=== PATIENT | female | born 1975 | race African-American/Black ===

== ENCOUNTER 2019-10-10 00:44 | Emergency (ER) | payer OTHER, SELFPAY ==
--- NOTE | ~2019-10-10 | CT_ITS ---
EXAMINATION: CT abdomen pelvis w con DATE: 10/10/2019 04:11 INDICATION: Epigastric abdominal pain TECHNIQUE: Computed tomography (CT) of the abdomen and pelvis was performed with 100 cc Omnipaque 350 intravenous contrast. Automated exposure control and iterative reconstruction technique were employe d. Exam dose: 642.54 mGy-cm total exam DLP. COMPARISON: 03/12/2019 CT abdomen pelvis FINDINGS: The lung bases are clear of infiltrate or consolidation. No pericardial or pleural effusion. The liver, spleen, pancreas, gallbladder, bile ducts, pancreatic duct and adrenal glands are unremark able. Probable small left adrenal adenoma. No renal mass lesion or urinary tract calculus or hydroure teronephrosis. Normal caliber of the abdominal aorta. No intraperitoneal or retroperitoneal or pelvic mass lesion or adenopathy or ascites. Bilateral sclerotic changes at the sacroiliac joints. No suspicious osteolytic or osteoblastic lesion s are noted. Normal appendix. There is extensive diverticulosis of left and right colon; no CT evidence of diverti culitis. No bowel obstruction, pneumatosis, bowel wall thickening or intraperitoneal free air. IMPRESSION: Extensive diverticulosis of left and right colon; no CT evidence of diverticulitis Normal appendix Bilateral sacroiliac osteosclerotic changes Reviewed, dictated and finalized at [facility]. Reviewed, dictated and finalized at [facility]. IMPRESSION: Extensive diverticulosis of left and right colon; no CT evidence o f diverticulitis Normal appendix Bilateral sacroiliac osteosclerotic changes
[2019-10-10 00:47] VITALS: BP 145/82; PULSE 90; RESP 18; TEMP 37.3; O2SAT 100
--- NOTE | 2019-10-10 00:55 | ED.ABDPAIN ---
HPI - Abdominal Pain General Chief Complaint: Abdominal Pain Stated Complaint: n/v History of Present Illness HPI narrative: Periumbilical pain radiating to her back. Burning in quality. Started after eating dinner and having one drink. She has a h/o diverticultis, this feels different. Related Data Allergies Allergy/AdvReac Type Severity Reaction Status Date / Time No Known Allergies Allergy Unverified 07/05/18 10:38 Review of Systems Review of Systems: All systems reviewed & are unremarkable except as noted in HPI and below Constitutional: Constitutional: Denies chills and Denies fever(s) Cardiovascular: Cardiovascular: Denies chest pain Respiratory: Respiratory: Denies dyspnea Gastrointestinal: Gastrointestinal: Reports abdominal pain and Reports nausea PMFSH Past Medical History Medical History (Updated 10/11/19 @ 02:53 by Jose Carlos Wright MD) Diverticulitis Social History Social History (Updated 10/11/19 @ 02:53 by Jose Carlos Wright MD) Smoking status: Light tobacco smoker Gender identity (if verbalized by the patient): Female Exam Const: General: healthy appearing, no acute distress and alert Orientation/consciousness: patient oriented x3 HENMT: Head: normal to inspection Resp: Effort & Inspection: normal respiratory effort Auscultation: clear to auscultation bilaterally Cardio: Rate: regular rate Rhythm: regular rhythm GI: Inspection: non-distended GI Palp: Yes Soft to palpation, Yes Tenderness to palpation present (GI) (periumbilcal and eigastric), No Guarding due to palpation present (GI) and No Rebound tenderness present Skin: General skin exam: normal color Neuro: General: patient oriented x3, moves all extremities, no focal motor deficits and CN's II-XI intact bilaterally Speech: normal speech Extrem: General: normal to inspection Course Vital Signs Vital signs: Vital Signs Temperature 37.3 C 10/10/19 00:47 Pulse Rate 90 10/10/19 00:47 Respiratory Rate 18 10/10/19 00:47 Blood Pressure 145/82 H 10/10/19 00:47 Pulse Oximetry 100 10/10/19 00:47 Temperature 37.3 C 10/10/19 00:47 Pulse Rate 68 10/10/19 06:22 Respiratory Rate 18 10/10/19 06:22 Blood Pressure 132/62 10/10/19 06:22 Pulse Oximetry 98 10/10/19 06:22 MDM - Abdominal Pain Differential Diagnosis Differential diagnosis: Likely acute appendicitis, diverticulitis, gastroenteritis and pancreatitis Medical Records Attestation: I reviewed the patient's medical records. Lab Data Attestation: I reviewed the patient's lab results. Result diagrams: 10/10/19 01:11 10/10/19 01:11 Labs: Lab Results 10/10/19 10/10/19 10/10/19 Range/Units 01:11 01:11 03:55 WBC 9.9 (4.5-10.0) K/mm3 RBC 4.26 (4.2-5.4) M/mm3 Hgb 13.4 (12.0-15.0) g/dL Hct 40.0 (37.0-47.0) % MCV 93.9 (80-100) fl MCH 31.5 (26-34) pg MCHC 33.5 (32-36) g/dl RDW 12.2 (11.5-14.5) % Plt Count 260 (150-375) k/mm3 MPV 9.5 (7.4-10.4) fl Immature Gran % (Auto) 0.2 (0-0.5) % Neut % (Auto) 74.6 H (45.5-73.1) % Lymph % (Auto) 16.9 L (18.3-44.2) % [place] % (Auto) 7.3 (2.6-8.5) % Eos % (Auto) 0.8 (0-4.4) % Baso % (Auto) 0.2 (0.2-1.2) % Lymph # (Auto) 1.67 (0.9-3.2) K/mm3 [place] # (Auto) 0.7 H (0.1-0.6) K/mm3 Eos # (Auto) 0.1 (0-0.3) K/mm3 Baso # (Auto) 0.0 (0.0-0.1) K/mm3 Abs Immat Gran (auto) 0.02 (0.00-0.031) K/mm3 Absolute Neuts (auto) 7.4 H (1.3-6.7) K/mm3 Absolute Nucleated RBC 0.0 (0.0-0.012) K/mm3 Nucleated RBC % 0.0 (0.0-0.2) % Sodium 137 (137-145) mmol/L Potassium 4.0 (3.4-5.0) mmol/L Chloride 107 (98-107) mmol/L Carbon Dioxide 24 (22-30) mmol/L BUN 15 (7-17) mg/dL Creatinine 1.00 (0.7-1.0) mg/dL Estim Creat Clear Calc Not Reportable Estimated GFR > 60 (59 - ) Glucose 110 H (65-105) mg/dL Calcium 9.5 (8.4-10.2) mg/dL Total
[2019-10-10] MEDS: SODIUM CHLORIDE 0.9% IV 1,000 ML 999 ML IV CONT (01:13)
[2019-10-10] MEDS: ONDANSETRON INJ 4 MG/2 ML VIAL IV PUSH (01:15)
[2019-10-10] MEDS: PANTOPRAZOLE SODIUM IV 40 MG VIAL IV PUSH (01:15)
[2019-10-10] MEDS: BELLADONNA ALK/PHENOB ELIX 10 ML, MAG HYDROX/ALUMINUM HYD/SIMETH 30 ML, LIDOCAINE HCL 2... PO (01:16)
[2019-10-10 01:19] LABS: Basophils Percent Auto 0.2 % (0.2-1.2); Eosinophils Absolute Auto 0.1 K/mm3 (0-0.3); Eosinophils Percent Auto 0.8 % (0-4.4); Hemoglobin 13.4 g/dL (12.0-15.0); Immature Granulocyte Absolute 0.02 K/mm3 (0.00-0.031); Immature Granulocyte Percent A 0.2 % (0-0.5); Lymphocytes Absolute Auto 1.67 K/mm3 (0.9-3.2); Lymphocytes Percent Auto 16.9 % (18.3-44.2); Mean Corpuscular HGB Conc 33.5 g/dl (32-36); Mean Corpuscular Hemoglobin 31.5 pg (26-34); Mean Corpuscular Volume 93.9 fl (80-100); Mean Platelet Volume 9.5 fl (7.4-10.4); Monocytes Absolute Auto 0.7 K/mm3 (0.1-0.6); Monocytes Percent Auto 7.3 % (2.6-8.5); Neutrophils Absolute Auto 7.4 K/mm3 (1.3-6.7); Neutrophils Percent Auto 74.6 % (45.5-73.1); Platelet Count Result 260 k/mm3 (150-375); Red Blood Count 4.26 M/mm3 (4.2-5.4); Red Cell Distribution Width 12.2 % (11.5-14.5); White Blood Count 9.9 K/mm3 (4.5-10.0)
[2019-10-10 02:09] LABS: Alanine Aminotransferase 16 U/L (4-35); Albumin Level 4.5 g/dL (3.5-5.1); Alkaline Phosphatase 69 U/L (38-126); Aspartate Amino Transferase 18 U/L (14-36); Bilirubin,Total 0.3 mg/dL (0.2-1.3); Blood Urea Nitrogen 15 mg/dL (7-17); Calcium 9.5 mg/dL (8.4-10.2); Carbon Dioxide 24 mmol/L (22-30); Chloride 107 mmol/L (98-107); Estimated Glomerular Filt Rate > 60; Glucose 110 mg/dL (65-105); Lipase 40 U/L (23-300); Sodium 137 mmol/L (137-145)
[2019-10-10] MEDS: DICYCLOMINE HCL INJ 20 MG/2 ML VIAL IM (02:30)
[2019-10-10 02:31] VITALS: BP 133/75; PULSE 67; RESP 18; O2SAT 99
[2019-10-10 03:49] VITALS: BP 131/86; PULSE 64; RESP 18; O2SAT 100
[2019-10-10 04:17] LABS: Add Urine Microscopic? YES; Appearance Urine Clear (Clear); Bilirubin Urine Negative (Negative); Blood Urine Negative (Negative); Color Urine Yellow (Yellow); Glucose Urine UA Negative (Negative); Ketones Urine Trace mg/dL (Negative); Leukocyte Esterase Ur Negative LEU/UL (Negative); Mucus Urine Rare /lpf; Nitrate Urine Negative (Negative); Protein Urine 1+ mg/dL (Negative); RBC Urine 0-2 /hpf (0-2); WBC Urine 0-3 /hpf
[2019-10-10 04:28] LABS: Specific Grav Ur 1.034 (1.001-1.035)
[2019-10-10 05:30] VITALS: BP 128/74; PULSE 64; RESP 18; O2SAT 100
[2019-10-10 06:22] VITALS: BP 132/62; PULSE 68; RESP 18; O2SAT 98
== END 2019-10-10 06:24 | disposition home or self-care (01) ==
PROVIDERS: Emergency Provider Emergency Medicine
DX: R10.33 Periumbilical pain (principal)
CPT/HCPCS: 36415; 74177; 80053; 81001; 81025; 83690; 85025; 96361; 96372; 96374; 96375; 99284; A9270; C9113; J0500; J2405; J7030; Q9967

== ENCOUNTER 2021-07-27 08:47 | Emergency (ER) | payer OTHER, SELFPAY ==
[2021-07-27 09:02] VITALS: BP 134/87; PULSE 66; RESP 18; TEMP 37.1; O2SAT 99
--- NOTE | 2021-07-27 09:12 | ED.ABDPAIN ---
HPI - Abdominal Pain General Chief Complaint: Abdominal Pain Stated Complaint: Stomach Cramping Time Seen by Provider: 07/27/21 09:10 Source: patient Mode of arrival: ambulatory Limitations: no limitations History of Present Illness HPI narrative: Lincoln Baugh is a 46 yo female with a PMH of diverticulitis, IBS who [facility] with increasing abdominal pain over the last week week to 10 days she states that she feels gassy but cannot get rid of this feeling of bloating and pain and today is a 10/10. Regular bowel movements, does not really feel real under externally, has Depo in arm Related Data Home Medications Medication Instructions Recorded Confirmed omeprazole 40 mg DIRECTED 07/27/21 07/27/21 Allergies Allergy/AdvReac Type Severity Reaction Status Date / Time No Known Allergies Allergy Unverified 07/05/18 10:38 Review of Systems Review of Systems: CONSTITUTIONAL: Denies fever, chills, sweats. EYES: Denies visual changes, redness, discharge. ENT: Denies rhinorrhea, congestion, sore throat, otalgia. CARDIOVASCULAR: Denies chest pain, palpitations, edema. RESPIRATORY: Denies dyspnea, wheezing, cough GASTROINTESTINAL:has abdominal pain- 10/10, no nausea, vomiting, diarrhea. GENITOURINARY: Denies dysuria, hematuria, abnormal discharge SKIN: Denies rash or itching. NEUROLOGIC: Denies numbness, or focal weakness. PSYCHIATRIC: Denies anxiety or depression. PMFSH Past Medical History Medical History Diverticulitis IBS (irritable bowel syndrome) Social History Social History Smoking status: Light tobacco smoker Gender identity (if verbalized by the patient): Female Comments At time of signature, I agree with nursing past medical, surgical, social and family history. There is no relevant family history pertinent to the presenting complaint. Exam Narrative: GENERAL: This is a well-nourished, well-developed patient, in moderate distress. HEAD: normocephalic, atraumatic. EYES: Sclera clear/white. Vision is grossly intact. EARS: External ears normal,. Hearing grossly intact. NOSE: External nose normal without nasal discharge, nares without redness, no rhinorrhea. THROAT: Mucous membranes moist, NECK: Neck supple, CARDIOVASCULAR: Regular rate and rhythm without murmurs, gallops, or rubs. RESPIRATORY: Clear to auscultation. Breath sounds equal bilaterally. No wheezes, rales, or rhonchi. GASTROINTESTINAL: Abdomen soft, not particularly tender doubled over in pain, rates 10 out of 10, has bowel sounds SKIN: warm, intact with no suspicious lesions or rash, good texture and turgor. NEURO: awake, alert, and oriented to person, place and time. There were no obvious focal neurologic abnormalities. Steady gait EXTREMITIES: Normal range of motion. BACK: Nontender without deformity Course Course Emergency Course: Patient comes with increasing abdominal pain for the last 10 days that she statesis / ; its constant and has not improved UA is negative test is negative Patient is being sent to [place] for further work-up Level of Care: Express Care Visit Vital Signs Vital signs: Vital Signs Temperature 98.7 F 07/27/21 09:02 Pulse Rate 66 07/27/21 09:02 Respiratory Rate 18 07/27/21 09:02 Blood Pressure 134/87 07/27/21 09:02 Pulse Oximetry 99 07/27/21 09:02 Temperature 98.7 F 07/27/21 09:02 Pulse Rate 66 07/27/21 09:02 Respiratory Rate 18 07/27/21 09:02 Blood Pressure 134/87 07/27/21 09:02 Pulse Oximetry 99 07/27/21 09:02 MDM - Abdominal Pain Differential Diagnosis Differential diagnosis: Likely abdominal pain, acute appendicitis, constipation, gastroenteritis, pancreatitis and other Lab Data Labs: UCG Bedside Result Negative Reference Range: Negative Urine Glucose
== END 2021-07-27 09:34 | disposition short-term general hospital (02) ==
PROVIDERS: Emergency Provider Nurse Practitioner
DX: R10.32 Left lower quadrant pain (principal); F17.200 Nicotine dependence, unspecified, uncomplicated
CPT/HCPCS: 81003; 81025; 99212; G0463

== ENCOUNTER 2021-07-27 09:58 | Emergency (ER) | payer OTHER, SELFPAY ==
--- NOTE | 2021-07-27 10:01 | PC.NURSE ---
Pt states she needs to leave to go get her phone. She states she will be back.
== END 2021-07-27 10:09 | disposition left against medical advice (07) ==
DX: Z53.21 Procedure and treatment not carried out due to patient leaving prior to being seen by health care provider (principal)
CPT/HCPCS: 99199

== ENCOUNTER 2021-07-27 10:27 | Emergency (ER) | payer OTHER, SELFPAY ==
[2021-07-27 10:37] VITALS: BP 143/98; PULSE 70; RESP 15; TEMP 36.4; O2SAT 95
[2021-07-27 10:52] LABS: Basophils Percent Auto 0.4 % (0.2-1.2); Eosinophils Absolute Auto 0.1 K/mm3 (0-0.3); Eosinophils Percent Auto 1.3 % (0-4.4); Hematocrit 39.6 % (37.0-47.0); Immature Granulocyte Absolute 0.03 K/mm3 (0.00-0.031); Immature Granulocyte Percent A 0.3 % (0-0.5); Lymphocytes Absolute Auto 2.24 K/mm3 (0.9-3.2); Lymphocytes Percent Auto 23.5 % (18.3-44.2); Mean Corpuscular HGB Conc 32.8 g/dl (32-36); Mean Corpuscular Hemoglobin 31.6 pg (26-34); Mean Corpuscular Volume 96.4 fl (80-100); Mean Platelet Volume 9.5 fl (7.4-10.4); Monocytes Absolute Auto 0.8 K/mm3 (0.1-0.6); Monocytes Percent Auto 8.5 % (2.6-8.5); Neutrophils Absolute Auto 6.3 K/mm3 (1.3-6.7); Platelet Count Result 263 k/mm3 (150-375); Red Blood Count 4.11 M/mm3 (4.2-5.4); Red Cell Distribution Width 12.3 % (11.5-14.5); White Blood Count 9.5 K/mm3 (4.5-10.0)
[2021-07-27 11:02] LABS: Alanine Aminotransferase 14 U/L (4-35); Albumin Level 4.3 g/dL (3.5-5.1); Alkaline Phosphatase 69 U/L (38-126); Anion Gap 5 mmol/L (8-16); Aspartate Amino Transferase 19 U/L (14-36); Bilirubin,Total 0.5 mg/dL (0.2-1.3); Blood Urea Nitrogen 13 mg/dL (7-17); Carbon Dioxide 23 mmol/L (22-30); Chloride 109 mmol/L (98-107); Estimated Glomerular Filt Rate > 60; Glucose 87 mg/dL (65-110); Lipase 35 U/L (23-300); Potassium 4.1 mmol/L (3.4-5.0); Sodium 137 mmol/L (137-145)
--- NOTE | 2021-07-27 11:52 | PC.NURSE ---
Pt presented to triage desk and states that she is feeling better and does not want to keep waiting to be seen. Pt reports she will followup with another doctor or else come back if it gets worse. Pt ambulatory upon leaving ED in NAD while talking on her cell phone.
== END 2021-07-27 12:03 | disposition left against medical advice (07) ==
LOC: ANHED 11:59
PROVIDERS: Emergency Medicine
DX: R10.32 Left lower quadrant pain (principal)
CPT/HCPCS: 36415; 80053; 83690; 85025; 99199

== ENCOUNTER 2021-10-27 07:14 | Emergency (ER) | payer OTHER, SELFPAY ==
[2021-10-27 07:20] VITALS: BP 135/94; PULSE 80; RESP 16; TEMP 36.1; O2SAT 99
--- NOTE | 2021-10-27 07:30 | ED.FEMALEGU ---
HPI - Female Genitourinary General Chief complaint: Urogenital-Female Stated complaint: uti Time Seen by Provider: 10/27/21 07:24 History of Present Illness HPI Narrative: 46-year-old female who has for the last week been having some itchiness and yellowish discharge, she states that she had unprotected intercourse 2 weeks ago, denies any burning or pain with urination, no abdominal or flank pain. States this feels like how it usually feels before she has a full-fledged UTI. No fevers or chills. Related Data Home Medications Medication Instructions Recorded Confirmed omeprazole 40 mg capsule,delayed 40 mg DIRECTED 07/27/21 07/27/21 release valacyclovir 1 gram tablet tablet 10/27/21 Allergies Allergy/AdvReac Type Severity Reaction Status Date / Time Penicillins AdvReac Other Verified 10/27/21 07:28 Review of Systems Review of Systems: CONST: No fever. HEENT: No sore throat C/V: No chest pain RESP: No cough GI: No abdominal pain : Vaginal discharge M/S: No joint pain. SKIN: No rash. NEURO: [No headache or focal numbness or weakness] PSYCH: [No depression] [facility] Past Medical History Medical History Diverticulitis IBS (irritable bowel syndrome) Social History Social History Smoking status: Light tobacco smoker Gender identity (if verbalized by the patient): Female Exam Narrative: EXAMINATION OF ORGAN SYSTEMS/BODY AREAS: Constitutional: Vital signs per nursing GENERAL:[No acute distress, non-toxic appearing.] HEAD: Normal with no signs of head trauma. EYES: EOMI, conjunctiva normal ENT: Hearing grossly intact LUNGS: Nonlabored breathing. HEART: [Regular rate and rhythm] ABD: [Soft], [nontender to palpation] : Scant discharge, no cervical motion tenderness or adnexal tenderness EXT: Normal range of motion SKIN: [No rashes or lesions.] NEURO: [Alert and oriented x 3. No gross focal sensory or strength deficits.] Course Vital Signs Vital signs: Vital Signs Temperature 97 F L 10/27/21 07:20 Pulse Rate 80 10/27/21 07:20 Respiratory Rate 16 10/27/21 07:20 Blood Pressure 135/94 H 10/27/21 07:20 Pulse Oximetry 99 10/27/21 07:20 Oxygen Delivery Room Air 10/27/21 07:20 Temperature 97 F L 10/27/21 07:20 Pulse Rate 80 10/27/21 07:20 Respiratory Rate 16 10/27/21 07:20 Blood Pressure 135/94 H 10/27/21 07:20 Pulse Oximetry 99 10/27/21 07:20 Oxygen Delivery Room Air 10/27/21 07:20 MDM - Female Genitourinary MDM Narrative Medical decision making narrative: 46-year-old female presenting with vaginal discharge and itching for the last week, had unprotected course 2 weeks ago, vital signs stable, exam shows soft nontender abdomen, no cervical motion tenderness or adnexal tenderness but slight discomfort with pelvic exam, differential includes STD, BV or yeast, UTI, . Doubt PID or TOA without CMT or adnexal tenderness. Labs show some WBCs but contaminated with squamous cells, had shared decision-making with the patient we felt she would benefit from empiric treatment at this time for STDs, she is given prescriptions for this and urged to follow-up with her doctor, return precautions provided and she should follow-up on her results. Abstinence for the next week advised. Lab Data Labs: Lab Results 10/27/21 10/27/21 10/27/21 Range/Units 07:27 07:50 07:50 Urine Color Yellow (Yellow) Urine Appearance Slightly cloudy (Clear) Urine pH 7.0 (5.0-9.0) Ur Specific [place] 1.020 (1.001-1.035) Urine Protein Negative (Negative) mg/dL Urine Glucose (UA) Negative (Negative) mg/dL Urine Ketones Negative (Negative) mg/dL Ur Blood (Man) 2+ H (Negative) Urine Nitrate Negative (Negative) Urine Bilirubin Negative (Negative) Urine Urobilinogen 1.0 (<2.0) mg/dL Leukocyte Esterase Rfl Trace H
[2021-10-27 07:33] LABS: Appearance Urine Slightly Cloudy (Clear); Bilirubin Urine Negative (Negative); Blood Urine 2+ (Negative); Color Urine Yellow (Yellow); Glucose Urine UA Negative (Negative); Ketones Urine Negative (Negative); Leukocyte Esterase Ur Trace LEU/UL (Negative); Nitrate Urine Negative (Negative); Protein Urine Negative (Negative)
[2021-10-27 07:43] LABS: Bacteria Urine Trace /hpf; Mucus Urine Rare /lpf; Squamous Epithelial Cell Urine Moderate /hpf (Few)
[2021-10-27 07:45] LABS: Add Urine Microscopic? YES
[2021-10-27] MEDS: DOXYCYCLINE HYCLATE 100 MG TABLET PO (07:56)
[2021-10-27] MEDS: metroNIDAZOLE 250 MG TABLET 500 MG PO (07:56)
[2021-10-27] MEDS: ONDANSETRON HCL ODT 4 MG TABLET PO (07:56)
[2021-10-27] MEDS: cefTRIAXone 1 GM VIAL 0.5 GM IM (07:59)
== END 2021-10-27 08:45 | disposition home or self-care (01) ==
PROVIDERS: Emergency Provider Emergency Medicine
DX: N76.0 Acute vaginitis (principal); K58.9 Irritable bowel syndrome, unspecified; F17.200 Nicotine dependence, unspecified, uncomplicated
CPT/HCPCS: 81001; 81025; 87070; 87491; 87591; 87808; 96372; 99284; A9270; J0696

== ENCOUNTER 2021-11-29 18:59 | Emergency (ER) | payer OTHER, SELFPAY ==
--- NOTE | ~2021-11-29 | CT_ITS ---
EXAMINATION: CT abdomen pelvis w con DATE: 11/29/2021 20:29 INDICATION: Left lower quadrant pain TECHNIQUE: Computed tomography (CT) of the abdomen and pelvis was performed with 100 cc Omnipaque 300 intravenous contrast. The dose-length product was 515.81 mGy-cm. Automated exposure control and iterative reconstruction technique were employed. COMPARISON: CT dated 10/10/2019. FINDINGS: Lung bases are unremarkable. No significant pleural or pericardial effusion. Heart size upp er normal. Normal appendix. Colonic diverticulosis with mild pericolonic fatty infiltration of the pr oximal sigmoid colon, compatible with mild uncomplicated diverticulitis. No free air or free fluid. The liver, spleen, pancreas, right adrenal gland and kidneys are unremarkable. There is a low-density 2 cm left adrenal nodule, most likely benign adenoma without significant change. There is bilateral asymmetric sclerosis of the sacroiliac joints may represent sacroiliitis. No acute osseous abnormalit y. IMPRESSION: 1. Mild acute uncomplicated diverticulitis proximal sigmoid colon. Reviewed, dictated and finalized at [facility].
[2021-11-29 19:00] VITALS: BP 168/81; PULSE 56; RESP 16; TEMP 36.8; O2SAT 100
--- NOTE | 2021-11-29 19:21 | PC.NURSE ---
pt. to txmt rm 4 ; breathing and skin signs wnl, NAD. Unhappy about sheet on bed; sheet changed.
[2021-11-29 19:34] LABS: Basophils Percent Auto 0.2 % (0.2-1.2); Eosinophils Absolute Auto 0.1 K/mm3 (0-0.3); Eosinophils Percent Auto 0.9 % (0-4.4); Hematocrit 37.9 % (37.0-47.0); Hemoglobin 12.5 g/dL (12.0-15.0); Immature Granulocyte Absolute 0.03 K/mm3 (0.00-0.031); Immature Granulocyte Percent A 0.3 % (0-0.5); Lymphocytes Absolute Auto 3.03 K/mm3 (0.9-3.2); Lymphocytes Percent Auto 29.2 % (18.3-44.2); Mean Corpuscular Hemoglobin 30.9 pg (26-34); Mean Corpuscular Volume 93.8 fl (80-100); Mean Platelet Volume 9.2 fl (7.4-10.4); Monocytes Absolute Auto 0.7 K/mm3 (0.1-0.6); Monocytes Percent Auto 6.8 % (2.6-8.5); Neutrophils Absolute Auto 6.5 K/mm3 (1.3-6.7); Neutrophils Percent Auto 62.6 % (45.5-73.1); Platelet Count Result 222 k/mm3 (150-375); Red Blood Count 4.04 M/mm3 (4.2-5.4); Red Cell Distribution Width 12.2 % (11.5-14.5); White Blood Count 10.4 K/mm3 (4.5-10.0)
[2021-11-29 19:45] LABS: Alanine Aminotransferase 20 U/L (6-35); Albumin Level 4.1 g/dL (3.5-5.1); Alkaline Phosphatase 62 U/L (38-126); Anion Gap 7 mmol/L (8-16); Aspartate Amino Transferase 22 U/L (14-36); Bilirubin,Total 0.3 mg/dL (0.2-1.3); Blood Urea Nitrogen 15 mg/dL (7-17); Calcium 8.5 mg/dL (8.4-10.2); Carbon Dioxide 21 mmol/L (22-30); Chloride 111 mmol/L (98-107); Estimated CRCL calculation 53 ml/min; Estimated Glomerular Filt Rate > 60; Glucose 138 mg/dL (65-110); Lipase 52 U/L (23-300); Potassium 4.1 mmol/L (3.4-5.0); Sodium 139 mmol/L (137-145)
[2021-11-29] MEDS: MORPHINE SULFATE (*CRX) 4 MG/ML INJ IV PUSH (19:50)
[2021-11-29 20:24] LABS: Appearance Urine Clear (Clear); Bilirubin Urine Negative (Negative); Color Urine Yellow (Yellow); Glucose Urine UA Negative (Negative); Ketones Urine Negative (Negative); Leukocyte Esterase Ur Negative LEU/UL (Negative); Nitrate Urine Negative (Negative); Protein Urine Negative (Negative); Specific Grav Ur 1.025 (1.001-1.035); Urobilinogen Urine 0.2 mg/dL (<2.0); pH Urine 5.5 (5.0-9.0)
[2021-11-29 20:27] LABS: Mucus Urine Rare /lpf; Squamous Epithelial Cell Urine Occasional /hpf (Few); WBC Urine 0-3 /hpf
[2021-11-29 20:28] LABS: Add Urine Microscopic? YES; Blood Urine Trace-Intact (Negative)
--- NOTE | 2021-11-29 20:28 | ED.GENADULT ---
HPI - General Adult General Chief complaint: Abdominal Pain Stated complaint: ABD pain x3 days Time Seen by Provider: 11/29/21 19:19 History of Present Illness HPI narrative: Patient is a 46-year-old female who presents ER with abdominal pain. Ongoing for 3 days. Located in left lower quadrant. No radiation. Has history of diverticulitis and this feels similar. No diarrhea. No fevers or chills or sweats. No blood in stool. Last diverticulitis was several years ago when she was hospitalized. Related Data Home Medications Medication Instructions Recorded Confirmed omeprazole 40 mg capsule,delayed 40 mg DIRECTED 07/27/21 07/27/21 release valacyclovir 1 gram tablet tablet 10/27/21 Allergies Allergy/AdvReac Type Severity Reaction Status Date / Time Penicillins AdvReac Other Verified 10/27/21 07:28 Review of Systems Review of Systems: All systems reviewed & are unremarkable except as noted in HPI and below Constitutional: Constitutional: Denies chills and Denies fever(s) ENT: Denies nasal congestion and Denies sore throat Cardiovascular: Cardiovascular: Denies chest pain, Denies rapid heart rate and Denies radiating jaw, neck or arm pain Respiratory: Respiratory: Denies cough and Denies dyspnea Gastrointestinal: Gastrointestinal: Reports abdominal pain, Reports bloating, Denies diarrhea, Denies nausea and Denies vomiting Genitourinary: Genitourinary: Denies nocturia and Denies dysuria PMFSH Past Medical History Medical History (Updated 11/29/21 @ 20:49 by Shola Pennington MD) Diverticulitis IBS (irritable bowel syndrome) Surgical History Surgical History (Updated 11/29/21 @ 20:46 by Shola Pennington MD) No pertinent past surgical history Social History Social History Smoking status: Light tobacco smoker Gender identity (if verbalized by the patient): Female Exam Narrative: GENERAL: Well-appearing, well-nourished, and in no acute distress. HEAD: Normocephalic, atraumatic. EYES: EOMI. CHEST: Clear to auscultation. No respiratory distress. HEART: Regular rate and rhythm. Normal peripheral pulses. ABDOMEN: Soft, mild tenderness in left lower quadrant with mild guarding, nondistended, normal active bowel sounds. EXTREMITIES: Normal range of motion. No edema. SKIN: Warm, dry, no rash. NEURO: Alert and oriented x3. PSYCH: Normal mood and affect. Course Course Emergency Course: Patient informed of results. Discharge home. Vital Signs Vital signs: Vital Signs Temperature 98.2 F 11/29/21 19:00 Pulse Rate 56 L 11/29/21 19:00 Respiratory Rate 16 11/29/21 19:00 Blood Pressure 168/81 H 11/29/21 19:00 Pulse Oximetry 100 11/29/21 19:00 Oxygen Delivery Room Air 11/29/21 19:00 Temperature 98.2 F 11/29/21 19:00 Pulse Rate 56 L 11/29/21 19:00 Respiratory Rate 16 11/29/21 19:00 Blood Pressure 168/81 H 11/29/21 19:00 Pulse Oximetry 100 11/29/21 19:00 Oxygen Delivery Room Air 11/29/21 19:00 Medical Decision Making Vital Signs Vital Signs: Vital Signs Temperature 98.2 F 11/29/21 19:00 Pulse Rate 56 L 11/29/21 19:00 Respiratory Rate 16 11/29/21 19:00 Blood Pressure 168/81 H 11/29/21 19:00 Pulse Oximetry 100 11/29/21 19:00 Oxygen Delivery Room Air 11/29/21 19:00 Temperature 98.2 F 11/29/21 19:00 Pulse Rate 56 L 11/29/21 19:00 Respiratory Rate 16 11/29/21 19:00 Blood Pressure 168/81 H 11/29/21 19:00 Pulse Oximetry 100 11/29/21 19:00 Oxygen Delivery Room Air 11/29/21 19:00 Lab Data Result diagrams: 11/29/21 19:26 11/29/21 19:26 Labs: Lab Results 11/29/21 11/29/21 11/29/21 Range/Units 19:26 19:26 20:14 WBC 10.4 H (4.5-10.0) K/mm3 RBC 4.04 L (4.2-5.4) M/mm3 Hgb 12.5 (12.0-15.0) g/dL Hct 37.9 (37.0-47.0) % MCV 93.8 (80-100) fl MCH 30.9 (26-34) pg MCHC 33.0 (32-36) g/dl
[2021-11-29 20:49] VITALS: BP 153/84; PULSE 67; RESP 20; O2SAT 100
[2021-11-29] MEDS: CIPROFLOXACIN 500 MG TAB PO (21:55)
[2021-11-29] MEDS: metroNIDAZOLE 250 MG TABLET 500 MG PO (21:56)
== END 2021-11-29 22:00 | disposition home or self-care (01) ==
PROVIDERS: Nurse Practitioner Family; Emergency Provider Emergency Medicine
DX: K57.32 Diverticulitis of large intestine without perforation or abscess without bleeding (principal); K58.9 Irritable bowel syndrome, unspecified; F17.200 Nicotine dependence, unspecified, uncomplicated
CPT/HCPCS: 36415; 74177; 80053; 81001; 81025; 83690; 85025; 96374; 99284; A9270; J2270; Q9967

== ENCOUNTER 2021-12-28 15:00 | Emergency (ER) | payer OTHER, SELFPAY ==
--- NOTE | ~2021-12-28 | XR_ITS ---
XR foot LT min 3V DATE: 12/28/2021 15:26 INDICATION: Dropped item onto foot. Left second toe and metatarsal pain TECHNIQUE: 4 views COMPARISON: None FINDINGS: There is soft tissue swelling of the second toe. No apparent fracture or dislocation. There is hallux valgus and bunion deformity. Mild posterior calcaneal enthesopathy. IMPRESSION: Soft tissue swelling of second toe; no apparent fracture or dislocation Hallux valgus and bunion deformity Mild posterior calcaneal enthesopathy. Reviewed, dictated and finalized at [facility]. IMPRESSION: Soft tissue swelling of second toe; no apparent fracture or disloca tion Hallux valgus and bunion deformity Mild posterior calcaneal enthesopathy.
[2021-12-28 15:07] VITALS: BP 138/89; PULSE 81; RESP 16; TEMP 36.6; O2SAT 100
--- NOTE | 2021-12-28 15:22 | ED.LOWEXIN ---
HPI - Extremity Injury (Lower) General Chief Complaint: Extremity Injury, Lower Stated Complaint: Toe Pain Time Seen by Provider: 12/28/21 15:36 Source: patient and RN notes reviewed Mode of arrival: ambulatory Limitations: no limitations History of Present Illness HPI Narrative: 46-year-old female presents with multiple complaints. She reports today she dropped a can good on her left second toe. She reports it hurts to move, it is swollen. In a separate complaint she reports chronic left shoulder pain. She denies injury to the left shoulder. She reports it aches throughout the day and massage makes it feel better. Reports she occasionally takes ibuprofen for it which helps. Reports its painful to sleep on. She denies chest pain or shortness of breath. She does not currently have a primary care doctor MD complaint: foot injury Related Data Home Medications Medication Instructions Recorded Confirmed omeprazole 40 mg capsule,delayed 40 mg DIRECTED 07/27/21 07/27/21 release valacyclovir 1 gram tablet tablet 10/27/21 Allergies Allergy/AdvReac Type Severity Reaction Status Date / Time Penicillins AdvReac Other Verified 12/28/21 15:05 Review of Systems Review of Systems: CONSTITUTIONAL: Denies malaise, chills, sweats, or fever. SKIN: Denies rash or itching, open skin, laceration, abrasion, redness, warmth MUSCULOSKELETAL: Reports left shoulder pain, left second toe pain, swelling NEUROLOGIC: Denies numbness, weakness All systems reviewed & are unremarkable except as noted in HPI and below PMFSH Past Medical History Medical History (Updated 12/28/21 @ 15:49 by Samara Romano NP) Diverticulitis IBS (irritable bowel syndrome) Surgical History Surgical History (Updated 11/29/21 @ 20:46 by Shola Pennington MD) No pertinent past surgical history Social History Social History Smoking status: Light tobacco smoker Gender identity (if verbalized by the patient): Female Comments At time of signature, agree with nursing past medical, surgical, social and family history. There is no relevant family history pertinent to the presenting complaint Exam Narrative: GENERAL: Well-appearing, well-nourished, and in no acute distress. HEAD: Normocephalic, atraumatic. EYES: PERRLA, conjunctivae clear NECK: Supple. CHEST: Speaks in full sentences. No respiratory distress. HEART: Regular rate and rhythm. Normal and equal peripheral pulses. EXTREMITIES: Second digit of left foot has normal strength and sensation, limited range of motion. Moderate edema, no ecchymosis. Normal sensation with sensitivity to light touch and pain. Mid digit tenderness. No open wounds, no skin tenting, no devitalized tissue or atrophy, no trophic changes, no obvious deformity, alignment normal, nearby joints and structures intact. Distal pulses palpable and equal bilaterally, skin warm, dry, pink. Capillary refill less than 3 seconds. No tenderness to palpation of the shoulder, clavicle, grossly normal range of motion, normal sensation and strength SKIN: Warm, dry, no rash. NEURO: Alert and oriented x3. PSYCH: Normal mood and affect Course Course Emergency Course: Patient is aware of diagnosis, understands and agrees to treatment plan. Anticipatory guidance given. Patient agrees to follow-up as directed and is aware of reasons to seek care at the emergency department. Portions of this record may have been created with voice recognition software Level of Care: Express Care Visit Vital Signs Vital signs: Vital Signs Temperature 97.8 F 12/28/21 15:07 Pulse Rate 81 12/28/21 15:07 Respiratory Rate 16 12/28/21 15:07 Blood Pressure 138/89 12/28/21 15:07 Pulse Oximetry 100 12/28/21 15:07 Temperature 97.8 F 12/28/21 15:07 Pulse Rate 81 12/28/21 15:07 Respiratory Rate 16 12/28/21 15:07 Blood Pressure 138/89 12/28/21 15:07 Pulse Oximetry 100 12/28/21
== END 2021-12-28 15:51 | disposition home or self-care (01) ==
PROVIDERS: Emergency Provider Nurse Practitioner
DX: S90.122A Contusion of left lesser toe(s) without damage to nail, initial encounter (principal); W20.8XXA Other cause of strike by thrown, projected or falling object, initial encounter; F17.200 Nicotine dependence, unspecified, uncomplicated; G89.29 Other chronic pain; M25.512 Pain in left shoulder
CPT/HCPCS: 73630; 99213; G0463

== ENCOUNTER 2022-01-12 15:11 | Emergency (ER) | payer OTHER, SELFPAY ==
--- NOTE | ~2022-01-12 | CT_ITS ---
EXAMINATION: CT abdomen pelvis w con DATE: 01/12/2022 18:03 INDICATION: abd pain TECHNIQUE: Computed tomography (CT) of the abdomen and pelvis was performed with 100 mL Omnipaque-350 intravenous contrast. Automated exposure control and iterative reconstruction technique were employe d. The dose-length product was 439.21 mGy-cm. COMPARISON: 11/29/2021. FINDINGS: Lower thorax: Clear lungs. Small fat-containing right posterior diaphragmatic hernia. Liver: Normal. Biliary/Gallbladder: No bile duct dilation. Pancreas: No mass or duct dilation. Spleen: Normal. Adrenals:Left adrenal adenoma. Kidneys: No mass, stone, or hydronephrosis. GI tract: Mild gastric wall edema. Single loop of mildly dilated small bowel in the left upper quadra nt without significant wall thickening or surrounding inflammatory change. Normal appendix. Extensive diverticular disease. Short segment wall thickening and surrounding inflammatory change proximal sig moid. Mesentery/Peritoneum: No ascites, mass, or free air. Retroperitoneum: No mass. Pelvis: Pelvic organs are within normal limits. Soft Tissues: Soft tissues and body wall unremarkable. Bones: No acute osseous finding. IMPRESSION: Acute uncomplicated diverticulitis involving the proximal sigmoid colon. Loop of dilated small bowel in the left upper quadrant may reflect chronic dilation, mild enteritis, or early IBD flare context. Reviewed, dictated and finalized at location K. IMPRESSION: Acute uncomplicated diverticulitis involving the proximal sigmoid colon. Loop o f dilated small bowel in the left upper quadrant may reflect chronic dilation, mild enteritis, or early IBD flare context.
[2022-01-12 15:14] VITALS: BP 140/83; PULSE 71; RESP 16; TEMP 37.1; O2SAT 99
[2022-01-12 16:02] LABS: Basophils Percent Auto 0.2 % (0.2-1.2); Eosinophils Absolute Auto 0.1 K/mm3 (0-0.3); Eosinophils Percent Auto 1.3 % (0-4.4); Hematocrit 37.9 % (37.0-47.0); Hemoglobin 12.3 g/dL (12.0-15.0); Immature Granulocyte Absolute 0.03 K/mm3 (0.00-0.031); Immature Granulocyte Percent A 0.3 % (0-0.5); Lymphocytes Absolute Auto 1.98 K/mm3 (0.9-3.2); Lymphocytes Percent Auto 19.6 % (18.3-44.2); Mean Corpuscular HGB Conc 32.5 g/dl (32-36); Mean Corpuscular Hemoglobin 31.1 pg (26-34); Mean Corpuscular Volume 95.9 fl (80-100); Mean Platelet Volume 8.9 fl (7.4-10.4); Monocytes Absolute Auto 0.9 K/mm3 (0.1-0.6); Monocytes Percent Auto 8.6 % (2.6-8.5); Neutrophils Absolute Auto 7.1 K/mm3 (1.3-6.7); Platelet Count Result 271 k/mm3 (150-375); Red Blood Count 3.95 M/mm3 (4.2-5.4); Red Cell Distribution Width 12.6 % (11.5-14.5); White Blood Count 10.1 K/mm3 (4.5-10.0)
[2022-01-12 16:18] LABS: Alanine Aminotransferase 17 U/L (6-35); Albumin Level 3.9 g/dL (3.5-5.1); Alkaline Phosphatase 65 U/L (38-126); Anion Gap 6 mmol/L (8-16); Aspartate Amino Transferase 18 U/L (14-36); Bilirubin,Total 0.3 mg/dL (0.2-1.3); Blood Urea Nitrogen 10 mg/dL (7-17); Calcium 9.1 mg/dL (8.4-10.2); Carbon Dioxide 23 mmol/L (22-30); Chloride 109 mmol/L (98-107); Estimated CRCL calculation 71 ml/min; Estimated Glomerular Filt Rate > 60; Glucose 128 mg/dL (65-110); Lipase 41 U/L (23-300); Potassium 3.7 mmol/L (3.4-5.0); Sodium 138 mmol/L (137-145)
[2022-01-12 16:42] LABS: Appearance Urine Clear (Clear); Bilirubin Urine 1+ (Negative); Blood Urine Negative (Negative); Color Urine Yellow (Yellow); Glucose Urine UA Negative (Negative); Ketones Urine Negative (Negative); Leukocyte Esterase Ur Negative LEU/UL (Negative); Nitrate Urine Negative (Negative); Protein Urine Trace mg/dL (Negative); Specific Grav Ur >= 1.030 (1.001-1.035)
[2022-01-12 16:47] LABS: Add Urine Microscopic? YES; Bacteria Urine Trace /hpf; Mucus Urine Rare /lpf; RBC Urine 0-2 /hpf (0-2); Squamous Epithelial Cell Urine Few /hpf (Few); WBC Urine 0-3 /hpf
[2022-01-12] MEDS: MORPHINE SULFATE (*CRX) 4 MG/ML INJ IV PUSH (17:26)
[2022-01-12] MEDS: ONDANSETRON INJ 4 MG/2 ML VIAL IV PUSH (17:26)
--- NOTE | 2022-01-12 17:36 | ED.ABDPAIN ---
HPI - Abdominal Pain General Chief Complaint: Abdominal Pain <FAWN Jansen Last Filed: 01/12/22 18:25> Stated Complaint: abd pain <FAWN Jansen Last Filed: 01/12/22 18:25> Time Seen by Provider: 01/12/22 17:09 <FAWN Jansen Last Filed: 01/12/22 18:25> Source: patient <FAWN Jansen Last Filed: 01/12/22 18:25> Mode of arrival: ambulatory <FAWN Jansen Last Filed: 01/12/22 18:25> Limitations: no limitations <FAWN Jansen Last Filed: 01/12/22 18:25> History of Present Illness HPI narrative: This is a 46 year old female that presents to the ER for lower abdominal pain intermittently over the last couple weeks. Reports worsening today. Denies fever, vomiting, diarrhea, or blood in the stool. <FAWN Jansen Last Filed: 01/12/22 18:25> Related Data Home Medications: Home Medications Medication Instructions Recorded Confirmed omeprazole 40 mg capsule,delayed 40 mg DIRECTED 07/27/21 07/27/21 release valacyclovir 1 gram tablet tablet 10/27/21 <FAWN Jansen Last Filed: 01/12/22 18:25> Allergies/Adverse Reactions: Allergies Allergy/AdvReac Type Severity Reaction Status Date / Time Penicillins AdvReac Other Verified 01/12/22 16:56 <FAWN Jansen Last Filed: 01/12/22 18:25> Review of Systems Review of Systems: CONSTITUTIONAL: Denies fever GASTROINTESTINAL: Reports abdominal pain. Denies nausea, vomiting, or diarrhea. GENITOURINARY: Denies dysuria or hematuria. <FAWN Jansen Last Filed: 01/12/22 18:25> All systems reviewed & are unremarkable except as noted in HPI and below <FAWN Jansen Last Filed: 01/12/22 18:25> [facility] Past Medical History Medical History: Medical History (Updated 01/12/22 @ 18:19 by Maegan Hayden PA-C) Diverticulitis IBS (irritable bowel syndrome) <Maegan Hayden PA-C - Last Filed: 01/12/22 18:25> Surgical History Surgical History: Surgical History (Updated 11/29/21 @ 20:46 by Shola Pennington MD) No pertinent past surgical history <Maegan Hayden PA-C - Last Filed: 01/12/22 18:25> Social History Social History: Social History (Updated 01/12/22 @ 17:41 by Maegan Hayden PA-C) Smoking status: Light tobacco smoker Substance use: current Substance use type: marijuana Gender identity (if verbalized by the patient): Female <Maegan Hayden PA-C - Last Filed: 01/12/22 18:25> Exam Narrative: GENERAL: Well-appearing, well-nourished, and in no acute distress. HEAD: Normocephalic, atraumatic. EYES: EOMI. CHEST: Clear to auscultation. No respiratory distress. No wheezes rales or rhonchi HEART: Regular rate and rhythm. No murmur heard. Normal peripheral pulses. ABDOMEN: Soft, nontender, nondistended, normal active bowel sounds. EXTREMITIES: Normal range of motion. No edema. SKIN: Warm, dry, no rash. NEURO: No focal deficits. Alert and oriented x3. PSYCH: Normal mood and affect <Maegan Hayden PA-C - Last Filed: 01/12/22 18:25> Course RETAIL OPERATIONS SPECIALIST/PA Physician Supervision For this patient encounter, I reviewed the RETAIL OPERATIONS SPECIALIST or PA documentation, treatment plan, and medical decision making <Juice Hay MD - Last Filed: 01/12/22 20:22> Vital Signs Vital signs: Vital Signs Temperature 98.8 F 01/12/22 15:14 Pulse Rate 71 01/12/22 15:14 Respiratory Rate 16 01/12/22 15:14 Blood Pressure 140/83 01/12/22 15:14 Pulse Oximetry 99 01/12/22 15:14 Oxygen Delivery Room Air 01/12/22 15:14 Temperature 98.8 F 01/12/22 15:14 Pulse Rate 86 01/12/22 19:16 Respiratory Rate 16 01/12/22 19:16 Blood Pressure 144/92 H 01/12/22 19:16 Pulse Oximetry 98 01/12/22 19:16 Oxygen Delivery Room Air 01/12/22 15:14 <Maegan Hayden PA-C - Last Filed: 01/12/22 18:25> Vital Signs Temperature 98.8 F 01/12/22 15:14 Pulse Rate 71 01/12/22
[2022-01-12 19:16] VITALS: BP 144/92; PULSE 86; RESP 16; O2SAT 98
== END 2022-01-12 19:22 | disposition home or self-care (01) ==
PROVIDERS: Emergency Provider Emergency Medicine; PCP Physician Assistant
DX: K57.32 Diverticulitis of large intestine without perforation or abscess without bleeding (principal); K58.9 Irritable bowel syndrome, unspecified; F17.200 Nicotine dependence, unspecified, uncomplicated
CPT/HCPCS: 36415; 74177; 80053; 81001; 81025; 83690; 85025; 96365; 96366; 96375; 99284; J0131; J2270; J2405; Q9967

== ENCOUNTER 2022-01-26 21:05 | Inpatient (IN) | payer OTHER, SELFPAY ==
--- NOTE | ~2022-01-26 | CT_ITS ---
EXAMINATION: CT abdomen pelvis w con DATE: 01/26/2022 22:43 INDICATION: LLQ pain/flank pain, constipation, hx diverticulit TECHNIQUE: Computed tomography (CT) of the abdomen and pelvis was performed with 100 mL Omnipaque-350 intravenous contrast. Automated exposure control and iterative reconstruction technique were employe d. The dose-length product was 529.20 mGy-cm. COMPARISON: 01/12/2022. FINDINGS: Lower thorax: Small uncomplicated fat-containing right posterior diaphragmatic hernia. Liver: Normal. Biliary/Gallbladder: Gallbladder is normal. No bile duct dilation. Pancreas: No mass or duct dilation. Spleen: Normal. Adrenals:Left adrenal adenoma. Kidneys: No mass, stone, or hydronephrosis. GI tract: Distal esophageal and gastric wall edema as can be seen with esophagitis/gastritis. No smal l or large bowel dilation. Normal appendix. Short segment pericolonic inflammatory change in the dist al descending colon. Extensive diverticulosis. Mesentery/Peritoneum: No ascites, mass, or free air. Retroperitoneum: No mass. Pelvis: Pelvic organs are within normal limits. Soft Tissues: Soft tissues and body wall unremarkable. Bones: No acute osseous finding. IMPRESSION: Acute uncomplicated distal descending colon diverticulitis. Reviewed, dictated and finalized at location K.
--- NOTE | ~2022-01-26 | CT_ITS ---
EXAMINATION: CT abdomen pelvis w con DATE: 01/28/2022 09:35 INDICATION: Abdominal pain. TECHNIQUE: Computed tomography (CT) of the abdomen and pelvis was performed with 100 mL Omnipaque 350 intravenous contrast. Automated exposure control and iterative reconstruction technique were employe d. The dose-length product was 439.93 mGy-cm. COMPARISON: CT abdomen and pelvis 01/26/2022 FINDINGS: The visualized portions of the lung bases demonstrate mild atelectasis. No pleural effusion . The heart size is normal. No pericardial effusion. The liver, gallbladder, spleen, pancreas, adrena l glands, and kidneys are normal. There is physiologic fluid in the pelvis. There are scattered diver ticula in the colon. There is wall thickening of distal descending colon with fat stranding around a diverticulum, consistent with diverticulitis. The appendix is normal. There are no pathologically enl arged lymph nodes. There is mild thoracolumbar spondylosis. IMPRESSION: 1. Mildly worsened diverticulitis of distal descending colon. No perforation or abscess. Reviewed, dictated and finalized at location A.
[2022-01-26 21:07] VITALS: BP 147/92; PULSE 60; RESP 20; TEMP 36.5; O2SAT 100
--- NOTE | 2022-01-26 21:24 | ED.ABDPAIN ---
HPI - Abdominal Pain General Chief Complaint: Abdominal Pain <FAWN Hannah Last Filed: 01/27/22 01:52> Stated Complaint: Abd Pain <FAWN Hannah Last Filed: 01/27/22 01:52> Time Seen by Provider: 01/26/22 21:12 <FAWN Hannah Last Filed: 01/27/22 01:52> History of Present Illness HPI narrative: Patient is a 46-year-old female with history of recurrent diverticulitis here for evaluation of left-sided abdominal pain and left flank pain. Patient states the pain came on yesterday evening. Pain is severe in nature and does not radiate. She reports nausea but no vomiting, in addition to constipation. Patient was treated for uncomplicated diverticulitis with Cipro and Flagyl as an outpatient 2 weeks ago. She just finished her antibiotics 2 days ago, her symptoms improved while she was on them, but states that pain came back. She now notes some urinary frequency and burning. Denies any fevers or chills, chest pain, shortness of breath. Has never had a colonoscopy. <FAWN Hannah Last Filed: 01/27/22 01:52> Related Data Home Medications: Home Medications Medication Instructions Recorded Confirmed omeprazole 40 mg capsule,delayed 40 mg PO DAILY PRN Gastric Reflux 07/27/21 01/27/22 release valacyclovir 1 gram tablet 1 tablet PO DAILY PRN Outbreak 10/27/21 01/27/22 medroxyprogesterone 150 mg/mL 150 mg IM [id number] 01/27/22 01/27/22 intramuscular suspension <FAWN Hannah Last Filed: 01/27/22 01:52> Allergies/Adverse Reactions: Allergies Allergy/AdvReac Type Severity Reaction Status Date / Time Penicillins AdvReac Other Verified 01/26/22 21:09 <FAWN Hannah Last Filed: 01/27/22 01:52> Review of Systems Review of Systems: Gen.: Denies fevers or chills Eyes: Denies eye pain or visual change ENT: Denies congestion Respiratory: Denies shortness of breath or cough CV: Denies chest pain or palpitations GI: Reports abdominal pain, nausea, constipation. reports frequency. Denies burning, urgency, or hematuria Musculoskeletal: Reports back pain. Denies muscle pain Neuro: Denies numbness, tingling, weakness or focal weakness Skin: Denies rash Except as documented, all other systems reviewed and negative <Maegan Tatum PA-C - Last Filed: 01/27/22 01:52> [facility] Past Medical History Medical History: Medical History Diverticulitis IBS (irritable bowel syndrome) <Maegan Tatum PA-C - Last Filed: 01/27/22 01:52> Surgical History Surgical History: Surgical History No pertinent past surgical history <Maegan Tatum PA-C - Last Filed: 01/27/22 01:52> Social History Social History: Social History (Updated 01/12/22 @ 17:41 by Maegan Hayden PA-C) Smoking status: Never smoker Alcohol intake: current Drinks per week: 3 Substance use: current Substance use type: marijuana Last use: 01/26 Gender identity (if verbalized by the patient): Female Spiritual care concerns: No <Maegan Tatum PA-C - Last Filed: 01/27/22 01:52> Exam Narrative: APPEARANCE: Uncomfortable appearing, bent over the bed Head: Normocephalic and atraumatic. EYES: PERRLA/EOMI, conjunctivae clear NOSE: No nasal drainage EARS: External ear normal in appearance THROAT: Oropharynx is clear. Mucous membranes are moist. NECK: Supple. No adenopathy, no masses. RESPIRATORY: Airway patent, respirations nonlabored. Clear to auscultation bilaterally, no rales, rhonchi, wheezing. CARDIOVASCULAR: Regular rate and rhythm without murmurs, rubs, or gallops. ABDOMINAL: Tender to palpation in left lower quadrant. No CVA tenderness. Normoactive bowel sounds. Soft, nondistended. No rebound tenderness or guarding. MUSCULOSKELETAL: Extremities are warm a
[2022-01-26] MEDS: SODIUM CHLORIDE 0.9% IV 1,000 ML 999 ML IV CONT (21:35)
[2022-01-26] MEDS: MORPHINE SULFATE (*CRX) 4 MG/ML INJ IV PUSH (21:35)
[2022-01-26] MEDS: ONDANSETRON INJ 4 MG/2 ML VIAL IV PUSH (21:36)
--- NOTE | 2022-01-26 21:43 | PC.NURSE ---
pt unable to provide urine sample at this time.
[2022-01-26 21:44] LABS: Basophils Percent Auto 0.2 % (0.2-1.2); Eosinophils Absolute Auto 0.2 K/mm3 (0-0.3); Eosinophils Percent Auto 1.3 % (0-4.4); Hematocrit 38.3 % (37.0-47.0); Hemoglobin 12.7 g/dL (12.0-15.0); Immature Granulocyte Absolute 0.03 K/mm3 (0.00-0.031); Immature Granulocyte Percent A 0.2 % (0-0.5); Lymphocytes Absolute Auto 1.88 K/mm3 (0.9-3.2); Mean Corpuscular HGB Conc 33.2 g/dl (32-36); Mean Corpuscular Hemoglobin 31.4 pg (26-34); Mean Corpuscular Volume 94.6 fl (80-100); Mean Platelet Volume 9.4 fl (7.4-10.4); Monocytes Absolute Auto 1.1 K/mm3 (0.1-0.6); Monocytes Percent Auto 8.1 % (2.6-8.5); Neutrophils Absolute Auto 10.2 K/mm3 (1.3-6.7); Neutrophils Percent Auto 76.2 % (45.5-73.1); Platelet Count Result 281 k/mm3 (150-375); Red Blood Count 4.05 M/mm3 (4.2-5.4); Red Cell Distribution Width 12.9 % (11.5-14.5); White Blood Count 13.4 K/mm3 (4.5-10.0)
[2022-01-26 21:54] LABS: Alanine Aminotransferase 21 U/L (6-35); Alkaline Phosphatase 75 U/L (38-126); Anion Gap 9 mmol/L (8-16); Aspartate Amino Transferase 22 U/L (14-36); Bilirubin,Total 0.7 mg/dL (0.2-1.3); Blood Urea Nitrogen 8 mg/dL (7-17); Calcium 9.4 mg/dL (8.4-10.2); Carbon Dioxide 20 mmol/L (22-30); Chloride 110 mmol/L (98-107); Estimated CRCL calculation 71 ml/min; Estimated Glomerular Filt Rate > 60; Glucose 99 mg/dL (65-110); Lipase 25 U/L (23-300); Potassium 3.6 mmol/L (3.4-5.0); Sodium 139 mmol/L (137-145)
[2022-01-26 21:55] LABS: Lactic Acid Reflex 0.8 mmol/L (0.7-2.0)
[2022-01-26 22:06] LABS: Appearance Urine Clear (Clear); Bilirubin Urine Negative (Negative); Blood Urine 1+ (Negative); Color Urine Yellow (Yellow); Glucose Urine UA Negative (Negative); Ketones Urine Trace mg/dL (Negative); Leukocyte Esterase Ur Negative LEU/UL (Negative); Nitrate Urine Negative (Negative); Protein Urine Negative (Negative); Specific Grav Ur 1.025 (1.001-1.035); Urobilinogen Urine 0.2 mg/dL (<2.0)
[2022-01-26 22:11] LABS: Add Urine Microscopic? YES; Mucus Urine Rare /lpf; RBC Urine 0-2 /hpf (0-2); Squamous Epithelial Cell Urine Few /hpf (Few); WBC Urine 0-3 /hpf
--- NOTE | 2022-01-26 23:24 | PM.IMHP ---
H&P: HPI History of Present Illness Date/Time: 01/26/22 23:24 Chief Complaint: abdominal pain Narrative: This is a 46-year-old female with past medical history significant for irritable bowel syndrome, diverticulosis, diverticulitis, patient just recently treated for acute diverticulitis after she completed her course of antibiotics came back due to abdominal pain localized to the left lower quadrant, constipation, denies any fevers, rigors, chills. patient just recently started advancing her diet however has had nagging pain in the left lower quadrant that has worsened in the course of the last 2 days, patient denies any other issues. Preliminary workup is significant for CT of abdomen and pelvis with acute uncomplicated diverticulitis, a WBC count of 13,000. patient has been admitted for further evaluation management treatment. Review of Systems Review of Systems: abdominal pain patient completed course of antibiotics for diverticulitis Constitutional: Constitutional: Denies chills, Denies fever(s), Denies malaise and Denies weakness Eyes: Eyes: Denies change in vision ENT: Denies dysphagia, Denies vertigo and Denies dizziness Cardiovascular: Cardiovascular: Denies chest pain, Denies syncope, Denies irregular heart rhythm, Denies lightheadedness, Denies palpitations and Denies dyspnea on exertion Respiratory: Respiratory: Denies change in phlegm color, Denies chest congestion, Denies cough, Denies excessive phlegm production, Denies pain on inspiration, Denies dyspnea and Denies dyspnea on exertion Gastrointestinal: Gastrointestinal: Reports abdominal pain ( left lower quadrant), Denies dyspepsia, Denies heartburn and Denies nausea Genitourinary: Genitourinary: Denies dysuria Musculoskeletal: Musculoskeletal: Denies back pain, Denies joint swelling and Denies muscle weakness Integumentary/Breasts: Skin/Breast: Denies rash Neurologic: Denies vertigo, Denies dizziness, Denies focal weakness and Denies Sensory deficit (Neuro) Psychiatric: Psychiatric: Reports no additional psychiatric complaints and Reports as per HPI Endocrine: Endocrine: Denies cold intolerance, Denies fatigue, Denies flushing, Denies heat intolerance, Denies polyphagia, Denies polydipsia and Denies palpitations Hematologic/Lymphatic: Hematologic/Lymphatic: Reports no additional hematologic/lymphatic complaints and Reports as per HPI Allergic/Immunologic: Allergic/Immunologic: Reports no additional allergic/immunologic complaints and Reports as per HPI PMFSH Past Medical History Medical History (Updated 01/27/22 @ 03:59 by Yusra Thorpe MD) Diverticulitis IBS (irritable bowel syndrome) Surgical History Surgical History No pertinent past surgical history Social History Social History (Updated 01/12/22 @ 17:41 by Maegan Hayden PA-C) Smoking status: Never smoker Alcohol intake: current Drinks per week: 3 Substance use: current Substance use type: marijuana Last use: 01/26 Gender identity (if verbalized by the patient): Female Spiritual care concerns: No Meds Home Medications and Allergies Home Medications Medication Instructions Recorded Confirmed Type omeprazole 40 mg capsule,delayed 40 mg PO DAILY PRN Gastric Reflux 07/27/21 01/27/22 History release valacyclovir 1 gram tablet 1 tablet PO DAILY PRN Outbreak 10/27/21 01/27/22 History medroxyprogesterone 150 mg/mL 150 mg IM [id number] 01/27/22 01/27/22 History intramuscular suspension Allergies Allergy/AdvReac Type Severity Reaction Status Date / Time Penicillins AdvReac Other Verified 01/26/22 21:09 Vital Signs Vital Signs - 24 hr 01/26/22 21:07 Temperature 97.7 F Pulse Rate 60 Respiratory Rate 20 Blood Pressure 147/92 H Pulse Oximetry 100 Oxygen Delivery Room Air Exam Narrative: patient is sitting in the stretcher Const: General: comfortable, no acute distres
[2022-01-27 00:08] LABS: SARS-CoV-2 RNA PCR Negative
[2022-01-27] MEDS: SODIUM CHLORIDE 0.9% IV 1,000 ML 150 ML IV CONT (00:23)
[2022-01-27] MEDS: metroNIDAZOLE 500 MG/ISO 100ML 500 MG/100 ML BAG 100 MG IVPB ×3 (00:25→16:26)
[2022-01-27 00:33] VITALS: BP 153/83; PULSE 61; RESP 18; O2SAT 99
--- NOTE | 2022-01-27 00:40 | PC.NURSE ---
Attempted to place second IV for better placement without success. Pt asked immediately after initial stick to remove needle stated that hurts way too much .
[2022-01-27 01:13] VITALS: BP 134/80; PULSE 79; RESP 18; TEMP 35.7; O2SAT 100; BMI 32.3
[2022-01-27 01:17] VITALS: BP 134/80; PULSE 79; TEMP 35.7; O2SAT 100; BMI 32.3
[2022-01-27] MEDS: DEXTROSE 5%/0.45% SOD CHL 1,000 ML 75 ML IV CONT ×2 (05:10→22:40)
--- NOTE | 2022-01-27 06:14 | PC.NURSE ---
pt alert and oriented, denies pain, refusing to get up and walk to the bathroom because I don't want to . Pt urinating in bucket on floor and refusing AM vitals.
[2022-01-27] MEDS: polyethylene glycoL 3350 17 GM POWD.PACK PO ×2 (08:50→21:06)
[2022-01-27] MEDS: PANTOPRAZOLE 40 MG TABLET PO (08:52)
[2022-01-27] MEDS: MORPHINE SULFATE (*CRX) 2 MG/ML INJ IV PUSH ×2 (12:49→16:26)
[2022-01-27 13:34] VITALS: BP 160/81; PULSE 62; RESP 14; TEMP 36.9; O2SAT 100
--- NOTE | 2022-01-27 15:29 | PM.IMPN ---
Progress Note: A&P Assessment and Plan (1) Abdominal pain: Code(s): R10.9 - Unspecified abdominal pain Status: Acute Assessment and Plan: Likely secondary to descending colon diverticulitis CT of abdomen and pelvis reviewed continue Rocephin and Flagyl IV analgesics morphine ordered IV Zofran Clear liquids Lactate was normal (2) Diverticulitis: Code(s): K57.92 - Diverticulitis of intestine, part unspecified, without perforation or abscess without bleeding Status: Acute Assessment and Plan: patient needs follow-up with surgery Recent history of diverticulitis 2 weeks back around same area (3) IBS (irritable bowel syndrome): Code(s): K58.9 - Irritable bowel syndrome without diarrhea Status: Acute Assessment and Plan: unchanged Subjective Date/time seen: 01/27/22 15:29 Interval history: ?This is a 46-year-old female with past medical history significant for irritable bowel syndrome, diverticulosis, diverticulitis, patient just recently treated for acute diverticulitis after she completed her course of antibiotics came back due to abdominal pain localized to the left lower quadrant, constipation, denies any fevers, rigors, chills. patient just recently started advancing her diet however has had nagging pain in the left lower quadrant that has worsened in the course of the last 2 days, patient denies any other issues.? Preliminary workup? is significant for CT of abdomen and pelvis with acute uncomplicated diverticulitis, a WBC count of 13,000. patient has been admitted for further evaluation management treatment. 01/27/2022 still feels sore in her belly no nausea no vomiting. Denies any fever. Not able to tolerate the diet Review of Systems Review of Systems: All systems reviewed & are unremarkable except as noted in HPI and below Exam Narrative: APPEARANCE: Uncomfortable appearing, in mild distress with pain Head: Normocephalic and atraumatic. EYES: PERRLA/EOMI, conjunctivae clear THROAT: Oropharynx is clear. Mucous membranes are moist. NECK: Supple. No adenopathy, no masses. RESPIRATORY: Airway patent, respirations nonlabored. Clear to auscultation bilaterally, no rales, rhonchi, wheezing. CARDIOVASCULAR: Regular rate and rhythm without murmurs, rubs, or gallops. ABDOMINAL: Tender to palpation in left lower quadrant.? No CVA tenderness.? Normoactive bowel sounds. Soft, nondistended. No rebound tenderness or guarding. MUSCULOSKELETAL: Extremities are warm and well-perfused. Moves all extremities well. No edema. NEURO: Normal speech. No focal neurologic deficits. SKIN: Skin is warm and dry. No rashes. PSYCHIATRIC: Normal affect/mood. ??< Objective Data Vital Signs Vital Signs: Vital Signs - 24 hr 01/26/22 21:07 01/27/22 00:33 01/27/22 01:13 Temperature 97.7 F 96.2 F L Pulse Rate 60 61 79 Respiratory Rate 20 18 18 Blood Pressure 147/92 H 153/83 H 134/80 Pulse Oximetry 100 99 100 Oxygen Delivery Room Air 01/27/22 08:00 01/27/22 13:34 01/27/22 01:17 Temperature 98.4 F 96.2 F L Pulse Rate 62 79 Respiratory Rate 14 Blood Pressure 160/81 H 134/80 Pulse Oximetry 100 100 Oxygen Delivery Room Air Intake/Output Intake/Output: Intake & Output 01/24/22 01/25/22 01/26/22 01/27/22 23:59 23:59 23:59 23:59 Intake Total 1100 Balance 1100 Meds/Results Medications: Active Medications Generic Name Dose Route Start Last Admin Trade Name Freq PRN Reason Stop Dose Admin Ceftriaxone Sodium/Dextrose 1 gm in 50 mls @ 100 mls/hr 01/27/22 21:00 Rocephin 1 Gm/D5w 50 Ml IVPB Q24H USHA Metronidazole 500 mg in 100 mls @ 100 mls/hr 01/27/22 08:00 01/27/22 09:54 Flagyl 500 Mg/Iso Soln 100 Ml IVPB Infused Q8H USHA Infusion Dextrose/Sodium Chloride 1,000 mls @ 75 mls/hr 01/27/22 04:05 01/27/22 05:10 Dextrose 5% Sodium Chloride 0.45% IV CONT 75 mls/hr .[id number] USHA Administration Morphine Sulfate 2 mg
[2022-01-27] MEDS: SIMETHICONE 80 MG TAB.CHEW PO ×3 (15:33→21:07)
[2022-01-27] MEDS: MELATONIN 5 MG TABLET PO (21:06)
[2022-01-27 21:47] VITALS: BP 144/93; PULSE 79; RESP 18; TEMP 36.1; O2SAT 100
--- NOTE | 2022-01-28 02:31 | PC.NURSE ---
Pt complains of pain in the abdomen. Pt given pain medication. Pt IV infiltrated, new IV placed. Pt independent. Pt showered self. Will continue to monitor pt.
[2022-01-28 06:11] LABS: Basophils Percent Auto 0.2 % (0.2-1.2); Eosinophils Absolute Auto 0.1 K/mm3 (0-0.3); Eosinophils Percent Auto 0.4 % (0-4.4); Hematocrit 35.9 % (37.0-47.0); Hemoglobin 11.9 g/dL (12.0-15.0); Immature Granulocyte Absolute 0.05 K/mm3 (0.00-0.031); Immature Granulocyte Percent A 0.4 % (0-0.5); Lymphocytes Absolute Auto 1.43 K/mm3 (0.9-3.2); Lymphocytes Percent Auto 10.6 % (18.3-44.2); Mean Corpuscular HGB Conc 33.1 g/dl (32-36); Mean Corpuscular Hemoglobin 30.8 pg (26-34); Mean Platelet Volume 9.5 fl (7.4-10.4); Monocytes Absolute Auto 1.4 K/mm3 (0.1-0.6); Monocytes Percent Auto 10.1 % (2.6-8.5); Neutrophils Absolute Auto 10.5 K/mm3 (1.3-6.7); Neutrophils Percent Auto 78.3 % (45.5-73.1); Platelet Count Result 254 k/mm3 (150-375); Red Blood Count 3.86 M/mm3 (4.2-5.4); Red Cell Distribution Width 12.5 % (11.5-14.5); White Blood Count 13.5 K/mm3 (4.5-10.0)
[2022-01-28 06:24] LABS: Alanine Aminotransferase 17 U/L (6-35); Albumin Level 3.7 g/dL (3.5-5.1); Alkaline Phosphatase 65 U/L (38-126); Anion Gap 6 mmol/L (8-16); Aspartate Amino Transferase 15 U/L (14-36); Bilirubin,Total 0.7 mg/dL (0.2-1.3); Blood Urea Nitrogen 3 mg/dL (7-17); Carbon Dioxide 22 mmol/L (22-30); Chloride 107 mmol/L (98-107); Estimated CRCL calculation 80 ml/min; Estimated Glomerular Filt Rate > 60; Glucose 110 mg/dL (65-110); Potassium 3.4 mmol/L (3.4-5.0); Sodium 135 mmol/L (137-145)
[2022-01-28] MEDS: polyethylene glycoL 3350 17 GM POWD.PACK PO (08:13)
[2022-01-28] MEDS: HYDROmorphone HCL INJ (*CRX) 1 MG/ML SYR IV PUSH ×2 (08:53→20:18)
[2022-01-28 09:02] LABS: Lactic Acid Reflex 2.2 mmol/L (0.7-2.0)
--- NOTE | 2022-01-28 10:51 | PM.CNGS ---
Assessment and Plan Assessment and plan (1) Diverticulitis of large intestine without perforation or abscess without bleeding: Code(s): K57.32 - Diverticulitis of large intestine without perforation or abscess without bleeding Status: Acute Assessment and Plan: I have reviewed the CTs during this admission as well as the patient's prior medical records. I discussed the findings with the patient. She has evidence of diverticulitis that has been slightly more difficult to treat this time around. Patient has had multiple prior episodes of acute diverticulitis that have typically improved with oral antibiotics. She was previously on Cipro and Flagyl about 2 weeks ago and did well initially but as soon as she stopped her antibiotics her symptoms returned. She has a penicillin allergy, therefore I would recommend current treatment with IV Levaquin and Flagyl. Agree with placing the patient NPO until her symptoms are improving. There is no sign of perforation or abscess and patient does not appear septic at this time. Discussed with patient that if she is showing worsening signs or symptoms then she might need urgent surgical intervention. Discussed possibility of requiring a temporary ostomy if emergency surgery is performed. Will continue to follow along with patient with serial abdominal examinations and follow up labs. (2) BMI 32.0-32.9,adult: Code(s): Z68.32 - Body mass index [BMI] 32.0-32.9, adult Status: Acute Plan Thank you very much for allowing us to aid in the care of this patient. History of Present Illness Consult details Consult date: 01/28/22 Reason for consult: other (Diverticulitis) Requesting physician: Lowell Jones MD Narrative: This is a 46-year-old woman who I am asked to see for refractory diverticulitis. The patient presented to the emergency department on 01/26/2022 with left lower quadrant pain and was found to have evidence of acute uncomplicated diverticulitis. She was admitted for IV antibiotics and continued treatment. She also recently had an episode of diverticulitis and was given an oral course of Cipro and Flagyl on 01/12/2022. Patient was having worsening pain since being admitted and a repeat CT was obtained today. This showed evidence of mildly worsened diverticulitis of the distal descending colon. There was no evidence of perforation or abscess. The patient has had multiple prior episodes of diverticulitis. She was 1st diagnosed about 10-12 years ago and was hospitalized at that time at [place]. She states that she has never been hospitalized for diverticulitis since then. She has had colonoscopies in the past. She states that none of her prior episodes of diverticulitis have been this severe. She is mostly dealing with the severe pain but denies any fevers, chills, nausea, or vomiting. The patient was receiving morphine for the pain but this was not adequately controlling her symptoms therefore she was changed to Dilaudid. Review of Systems Review of Systems: All systems reviewed & are unremarkable except as noted in HPI and below Constitutional: Constitutional: Reports as per HPI, Denies chills and Denies fever(s) Eyes: Eyes: Denies change in vision ENT: Denies hearing loss, Denies neck pain and Denies sore throat Cardiovascular: Cardiovascular: Denies chest pain and Denies dyspnea Respiratory: Respiratory: Denies cough, Denies dyspnea and Denies wheezing Gastrointestinal: Gastrointestinal: Reports as per HPI Genitourinary: Genitourinary: Denies hematuria and Denies dysuria Musculoskeletal: Musculoskeletal: Denies arthralgias, Denies joint swelling and Denies neck pain Allergic/Immunologic: Allergic/Immunologic: Denies wheezing [facility] Past Medical History Medical History (Updated 01/28/22 @ 11:03 by Sav Licea DO) Diverticulitis IBS (irritable bowel syndrome) Surgical History Surgical History (Updated 01/28/22 @ 10:55 by Sav Mc
[2022-01-28 11:48] LABS: Reflex Lactic Acid Yes or No Add Lactic
[2022-01-28] MEDS: SODIUM CHLORIDE 0.9% IV 1,000 ML 125 ML IV CONT ×2 (11:48→23:19)
[2022-01-28] MEDS: PANTOPRAZOLE SODIUM IV 40 MG VIAL IV PUSH (11:49)
[2022-01-28 12:37] LABS: Lactic Acid 1.5 mmol/L (0.7-2.0)
[2022-01-28] MEDS: metroNIDAZOLE 500 MG/ISO 100ML 500 MG/100 ML BAG 100 MG IVPB ×3 (13:32→23:19)
[2022-01-28] MEDS: SIMETHICONE 80 MG TAB.CHEW PO ×3 (13:33→20:18)
[2022-01-28 14:00] VITALS: BP 146/88; PULSE 80; RESP 14; TEMP 37; O2SAT 100
--- NOTE | 2022-01-28 15:10 | PM.IMPN ---
Progress Note: A&P Assessment and Plan (1) Abdominal pain: Code(s): R10.9 - Unspecified abdominal pain Status: Acute Assessment and Plan: Likely secondary to descending colon diverticulitis CT of abdomen and pelvis reviewed continue Rocephin and Flagyl IV analgesics morphine ordered 10 helpful switch to hydromorphone IV Zofran lactate mildly elevated today hip 2.2 from 0.[address] with worsening diverticulitis Keep NPO change antibiotics to IV Levaquin and Flagyl. Penicillin allergy. She states she got yeast infection with penicillin in the past. General surgery consultation History of recurrent diverticulitis in the past (2) Diverticulitis: Code(s): K57.92 - Diverticulitis of intestine, part unspecified, without perforation or abscess without bleeding Status: Acute Assessment and Plan: patient needs follow-up with surgery Recent history of diverticulitis 2 weeks back around same area (3) IBS (irritable bowel syndrome): Code(s): K58.9 - Irritable bowel syndrome without diarrhea Status: Acute Assessment and Plan: unchanged Subjective Date/time seen: 01/28/22 15:10 Interval history: ?This is a 46-year-old female with past medical history significant for irritable bowel syndrome, diverticulosis, diverticulitis, patient just recently treated for acute diverticulitis after she completed her course of antibiotics came back due to abdominal pain localized to the left lower quadrant, constipation, denies any fevers, rigors, chills. patient just recently started advancing her diet however has had nagging pain in the left lower quadrant that has worsened in the course of the last 2 days, patient denies any other issues.? Preliminary workup? is significant for CT of abdomen and pelvis with acute uncomplicated diverticulitis, a WBC count of 13,000. patient has been admitted for further evaluation management treatment. 01/27/2022 still feels sore in her belly no nausea no vomiting. Denies any fever. Not able to tolerate the diet 01/28/2022 reports increased pain in lower quadrant no nausea no vomiting. No fever. Repeat CT scan did this morning with reviewed. Discussed with General surgery Review of Systems Review of Systems: All systems reviewed & are unremarkable except as noted in HPI and below Exam Narrative: APPEARANCE: Uncomfortable appearing, in mild distress with pain Head: Normocephalic and atraumatic. EYES: PERRLA/EOMI, conjunctivae clear THROAT: Oropharynx is clear. Mucous membranes are moist. NECK: Supple. No adenopathy, no masses. RESPIRATORY: Airway patent, respirations nonlabored. Clear to auscultation bilaterally, no rales, rhonchi, wheezing. CARDIOVASCULAR: Regular rate and rhythm without murmurs, rubs, or gallops. ABDOMINAL: Tender to palpation in left lower quadrant.? No CVA tenderness.? Normoactive bowel sounds. Soft, nondistended. No rebound tenderness or guarding. MUSCULOSKELETAL: Extremities are warm and well-perfused. Moves all extremities well. No edema. NEURO: Normal speech. No focal neurologic deficits. SKIN: Skin is warm and dry. No rashes. PSYCHIATRIC: Normal affect/mood. ??< Objective Data Vital Signs Vital Signs: Vital Signs - 24 hr 01/27/22 21:47 01/27/22 20:00 01/28/22 08:00 Temperature 96.9 F L Pulse Rate 79 Respiratory Rate 18 Blood Pressure 144/93 H Pulse Oximetry 100 Oxygen Delivery Room Air Room Air 01/28/22 14:00 Temperature 98.6 F Pulse Rate 80 Respiratory Rate 14 Blood Pressure 146/88 H Pulse Oximetry 100 Oxygen Delivery Intake/Output Intake/Output: Intake & Output 01/25/22 01/26/22 01/27/22 01/28/22 23:59 23:59 23:59 23:59 Intake Total 2200 Output Total 600 1500 Balance 1600 -1500 Meds/Results Medications: Active Medications Generic Name Dose Route Start Last Admin Trade Name Freq PRN Reason Stop Dose Admin Hydromorphone HCl 1 mg 01/28/22 0
[2022-01-28] MEDS: MELATONIN 5 MG TABLET PO (20:18)
[2022-01-28 21:48] VITALS: BP 142/77; PULSE 65; RESP 14; TEMP 36.2; O2SAT 100
--- NOTE | 2022-01-29 00:19 | PC.NURSE ---
Pt states she is feeling better today than yesterday. Pt states that she is going home tomorrow (01/29/22). Pt compliant with care. Pt has no concerns at this time. Will continue to monitor pt.
[2022-01-29 03:10] VITALS: BP 152/82; PULSE 71; RESP 16; TEMP 36.3; O2SAT 98
[2022-01-29] MEDS: metroNIDAZOLE 500 MG/ISO 100ML 500 MG/100 ML BAG 100 MG IVPB (06:07)
[2022-01-29 06:30] LABS: Basophils Percent Auto 0.2 % (0.2-1.2); Eosinophils Absolute Auto 0.1 K/mm3 (0-0.3); Eosinophils Percent Auto 1.1 % (0-4.4); Hematocrit 34.2 % (37.0-47.0); Hemoglobin 11.3 g/dL (12.0-15.0); Immature Granulocyte Absolute 0.02 K/mm3 (0.00-0.031); Immature Granulocyte Percent A 0.2 % (0-0.5); Lymphocytes Absolute Auto 1.55 K/mm3 (0.9-3.2); Lymphocytes Percent Auto 18.3 % (18.3-44.2); Mean Corpuscular Hemoglobin 31.3 pg (26-34); Mean Corpuscular Volume 94.7 fl (80-100); Monocytes Absolute Auto 0.7 K/mm3 (0.1-0.6); Monocytes Percent Auto 8.7 % (2.6-8.5); Neutrophils Absolute Auto 6.1 K/mm3 (1.3-6.7); Neutrophils Percent Auto 71.5 % (45.5-73.1); Platelet Count Result 254 k/mm3 (150-375); Red Blood Count 3.61 M/mm3 (4.2-5.4); Red Cell Distribution Width 12.4 % (11.5-14.5); White Blood Count 8.5 K/mm3 (4.5-10.0)
[2022-01-29 06:55] LABS: Lactic Acid Reflex 0.7 mmol/L (0.7-2.0)
[2022-01-29 06:57] LABS: Alanine Aminotransferase 15 U/L (6-35); Albumin Level 3.5 g/dL (3.5-5.1); Alkaline Phosphatase 59 U/L (38-126); Anion Gap 11 mmol/L (8-16); Aspartate Amino Transferase 15 U/L (14-36); Bilirubin,Total 0.7 mg/dL (0.2-1.3); Blood Urea Nitrogen 4 mg/dL (7-17); Calcium 8.4 mg/dL (8.4-10.2); Carbon Dioxide 20 mmol/L (22-30); Chloride 107 mmol/L (98-107); Estimated CRCL calculation 71 ml/min; Estimated Glomerular Filt Rate > 60; Glucose 89 mg/dL (65-110); Magnesium 1.9 mg/dL (1.6-2.3); Potassium 3.4 mmol/L (3.4-5.0); Sodium 138 mmol/L (137-145)
--- NOTE | 2022-01-29 13:32 | PM.DS ---
DS: Admitting Diagnosis Discharge Date 01/29/22 Admitting Diagnosis Diverticulitis DS: Discharge Diagnosis Discharge Diagnosis (1) Abdominal pain: Code(s): R10.9 - Unspecified abdominal pain Status: Acute (2) Diverticulitis: Code(s): K57.92 - Diverticulitis of intestine, part unspecified, without perforation or abscess without bleeding Status: Acute (3) IBS (irritable bowel syndrome): Code(s): K58.9 - Irritable bowel syndrome without diarrhea Status: Acute DS: Summary Hospital Course Reason for hospitalization: This is a 46-year-old female with past medical history significant for irritable bowel syndrome, diverticulosis, diverticulitis, patient just recently treated for acute diverticulitis after she completed her course of antibiotics came back due to abdominal pain localized to the left lower quadrant, constipation, denies any fevers, rigors, chills. patient just recently started advancing her diet however has had nagging pain in the left lower quadrant that has worsened in the course of the last 2 days, patient denies any other issues.? Preliminary workup? is significant for CT of abdomen and pelvis with acute uncomplicated diverticulitis, a WBC count of 13,000. patient has been admitted for further evaluation management treatment. Hospital Course: # abdominal pain: ?Likely secondary to? descending colon diverticulitis ?CT of abdomen and pelvis reviewed ?continue Rocephin and Flagyl IV? analgesics morphine ordered 10 helpful switch to hydromorphone IV Zofran ?lactate mildly elevated today hip 2.2 from 0.[address] with worsening diverticulitis She was then switched to NPO and antibiotics changed to IV Levaquin and Flagyl She had penicillin allergy. Lactate went up to 2.2 as well. She was started on IV fluids. Lactate improved with IV hydration. General surgery was consulted in the hospital stay. On 01/29/2022 she wanted to be started on diet right away and in like full liquid diet and left against medical advise. She has history of recurrent diverticulitis in the past. She was advised that we need to start diet slowly and see if she tolerates did due to the fact that it got worse yesterday. After she left AMA I did call her back discussed diet restriction at home as also offered her To send antibiotic script for 10 more days until take at home and to report to the ER or get back to her regular doctor for further evaluation and management in case it gets worse. line she remained hemodynamically stable throughout the hospital stay She does have history of irritable bowel syndrome in the past and follows up with GI as regular basis. Time Spent with Patient Time attestation: Total time spent providing and/or coordinating discharge services: 45 minutes Exam Narrative: Did not examine on the day of discharge DS: Data Data Completed and Pending Labs on day of discharge: Labs from last 24 hours 01/29/22 01/29/22 01/29/22 05:50 05:50 05:50 WBC 8.5 RBC 3.61 L Hgb 11.3 L Hct 34.2 L MCV 94.7 MCH 31.3 MCHC 33.0 RDW 12.4 Plt Count 254 MPV 10.0 Immature Gran % (Auto) 0.2 Neut % (Auto) 71.5 Lymph % (Auto) 18.3 Bea[place]gard % (Auto) 8.7 H Eos % (Auto) 1.1 Baso % (Auto) 0.2 Lymph # (Auto) 1.55 Bea[place]gard # (Auto) 0.7 H Eos # (Auto) 0.1 Baso # (Auto) 0.0 Abs Immat Gran (auto) 0.02 Absolute Neuts (auto) 6.1 Absolute Nucleated RBC 0.0 Nucleated RBC % 0.0 Sodium 138 Potassium 3.4 Chloride 107 Carbon Dioxide 20 L Anion Gap 11 BUN 4 L Creatinine 0.80 Estim Creat Clear Calc 71 Estimated GFR > 60 Glucose 89 Lactic Acid 0.7 Calcium 8.4 Magnesium 1.9 Total Bilirubin 0.7 AST 15 ALT 15 Alkaline Phosphatase 59 Total Protein 7.0 Albumin 3.5 Imaging Radiologist's impression: ITS Impressions Abdomen/Pelvis CT 01/26/22 22:53 IMPRESS
== END 2022-01-29 11:31 | disposition left against medical advice (07) | DRG 244 ==
LOC: ANHED 21:22 → ANH3MEDSUR 23:57
PROVIDERS: Physician Assistant; Admitting Provider Internal Medicine; Emergency Provider Emergency Medicine; PCP Physician Assistant; Visit Provider Internal Medicine
DX: K57.32 Diverticulitis of large intestine without perforation or abscess without bleeding (principal); K58.9 Irritable bowel syndrome, unspecified; Z20.822 Contact with and (suspected) exposure to COVID-19
CPT/HCPCS: 36415; 74177; 80053; 81001; 81025; 83605; 83690; 83735; 85025; 96361; 96365; 96366; 96374; 96375; 96376; 99285; A9270; C9113; C9803; G0378; G0379; J0696; J1170; J1956; J2270; J2405; J7030; Q9967; U0003; U0005

== ENCOUNTER 2022-02-10 08:06 | Emergency (ER) | payer OTHER, SELFPAY ==
--- NOTE | 2022-02-10 08:09 | ED.FEMALEGU ---
HPI - Female Genitourinary General Chief complaint: Urogenital-Female Stated complaint: yeast infection Time Seen by Provider: 02/10/22 08:19 Source: patient, RN notes reviewed and old records reviewed Mode of arrival: ambulatory Limitations: no limitations History of Present Illness HPI Narrative: 46-year-old female presents to the [facility] with complaints of a yeast infection. Patient denies any discharge. Reports that she has been on multiple antibiotics over the last month due to her diverticulitis because she does not want to get a colostomy. Patient reports that over the last several days she has had increased itching to her vaginal area. Has been on Flagyl, does not think it is a bacterial vaginitis. States it does not feel like when she had an STD. Related Data Home Medications Medication Instructions Recorded Confirmed omeprazole 40 mg capsule,delayed 40 mg PO DAILY PRN Gastric Reflux 07/27/21 02/10/22 release medroxyprogesterone 150 mg/mL 150 mg IM [id number] 01/27/22 02/10/22 intramuscular suspension Allergies Allergy/AdvReac Type Severity Reaction Status Date / Time Penicillins AdvReac Mild Other Verified 02/10/22 08:17 Review of Systems Review of Systems: All systems reviewed & are unremarkable except as noted in HPI and below Constitutional: Constitutional: Reports no additional constitutional complaints, Denies chills and Denies fever(s) Eyes: Eyes: Reports no additional eye complaints ENT: Reports system reviewed and no additional complaints, except as documented Cardiovascular: Cardiovascular: Reports no additional cardiovascular complaints Respiratory: Respiratory: Reports no additional respiratory complaints Gastrointestinal: Gastrointestinal: Reports no additional gastrointestinal complaints Genitourinary: Genitourinary: Reports as per HPI and Denies vaginal discharge Musculoskeletal: Musculoskeletal: Reports no additional musculoskeletal complaints Integumentary/Breasts: Skin/Breast: Reports system reviewed and no additional complaints, except as docu Neurologic: Reports system reviewed and no additional complaints, except as documented Psychiatric: Psychiatric: Reports no additional psychiatric complaints Allergic/Immunologic: Allergic/Immunologic: Reports no additional allergic/immunologic complaints [facility] Past Medical History Medical History (Updated 02/10/22 @ 08:31 by Samara White APRN) Diverticulitis IBS (irritable bowel syndrome) Surgical History Surgical History History of Family History Family History Other Breast cancer Grandparent Heart disease Hypertension Social History Social History Smoking status: Never smoker Alcohol intake: current Drinks per week: 3 Substance use: current Substance use type: marijuana Last use: 01/26 Gender identity (if verbalized by the patient): Female Spiritual care concerns: No Comments At the time of my signature, I reviewed and agree with the nursing past medical, surgical, social, and family history. There is no relevant family history pertinent to the patient complaint. Exam Const: General: healthy appearing, no acute distress and alert Nutritional Appearance: well nourished and obese Orientation/consciousness: patient oriented x3 Limitations: no limitations HENMT: Head: normal to inspection Ears: external ears normal Eyes: General: appearance normal, both eyes and all related structures Pupils: Equal, round and reactive pupils present Neck: Neck: normal visual inspection, no lymphadenopathy and no meningeal signs Chest: Chest palpation & inspection: normal inspection of the chest Resp: Effort & Inspection: normal respiratory effort and no use of accessory muscles Auscultation: clear to auscultation
[2022-02-10 08:16] VITALS: BP 141/91; PULSE 65; RESP 16; TEMP 37; O2SAT 99
[2022-02-10 08:18] VITALS: BP 141/91; PULSE 65; RESP 16; TEMP 37; O2SAT 99
== END 2022-02-10 08:35 | disposition home or self-care (01) ==
PROVIDERS: Emergency Provider Nurse Practitioner; PCP Physician Assistant
DX: B37.3 Candidiasis of vulva and vagina (principal); F12.90 Cannabis use, unspecified, uncomplicated
CPT/HCPCS: 99213; G0463

== ENCOUNTER 2022-08-30 10:10 | Emergency (ER) | payer OTHER, SELFPAY ==
--- NOTE | ~2022-08-30 | XR_ITS ---
Right Shoulder Technique: AP and scapular Y views were obtained. Clinical History: Pain Findings: No fracture or dislocation is seen. Osseous alignment is anatomic. Mild AC joint degenerati ve change present. Soft tissues are unremarkable. Impression: Mild AC joint degenerative change. Reviewed, dictated and finalized at location . Impression: Mild AC joint degenerative change.
--- NOTE | ~2022-08-30 | XR_ITS ---
Left Shoulder Technique: AP and scapular Y views were obtained. Clinical History: Pain Findings: No fracture or dislocation is seen. Osseous alignment is anatomic. The glenohumeral and acr omioclavicular joint spaces are preserved. Soft tissues are unremarkable. Impression: Unremarkable left shoulder radiographs. Reviewed, dictated and finalized at [facility]. Impression: Unremarkable left shoulder radiographs.
[2022-08-30 10:24] VITALS: BP 141/81; PULSE 104; RESP 16; TEMP 36.5; O2SAT 100
--- NOTE | 2022-08-30 11:47 | ECG_ITS ---
Measurements Intervals [place] Rate: 55 P: 51 TN: 148 QRS: 20 QRSD: 86 T: 37 QT: 419 QTc: 403 Interpretive Statements SINUS BRADYCARDIA BORDERLINE ECG NO PREVIOUS ECG AVAILABLE FOR COMPARISON Electronically Signed On 08-30-2022 16:52:04 CDT by Nestor Cade M.D.
--- NOTE | 2022-08-30 11:48 | ED.EXTPRO ---
HPI - Extremity Problem General Chief complaint: Extremity Problem,Nontraumatic Stated complaint: BILATERAL SHOULDER PAIN Time Seen by Provider: 08/30/22 11:21 History of Present Illness HPI Narrative: 47 y/o F reports for evaluation of bilateral shoulder pain, L>R x >4 months and worsening over the past week. 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 Pt reports the pain started many months ago after she threw a heavy trash bag over her shoulders. She was evaluated by her PCP and rx flexeril and ibuprofen and has been taking them as prescibed. Pt states her PCP ordered xrays but she did not go to her xray apt bc her symptoms improved, but have since been worsening. Reports pain worse with movement of her shoulder. Denies CP, SOB, paresthesias, neck pain, headaches, focal numbness or weakness, headache, fever, rashes. Related Data Home Medications Medication Instructions Recorded Confirmed omeprazole 40 mg capsule,delayed 40 mg PO DAILY PRN Gastric Reflux 07/27/21 02/10/22 release medroxyprogesterone 150 mg/mL 150 mg IM [id number] 01/27/22 02/10/22 intramuscular suspension Allergies Allergy/AdvReac Type Severity Reaction Status Date / Time Penicillins AdvReac Mild Other Verified 02/10/22 08:17 Review of Systems Review of Systems: CONSTITUTIONAL: Denies fever, chills EYES: Denies visual changes, redness, or discharge. ENT: Denies rhinorrhea, congestion, sore throat, or otalgia. CARDIOVASCULAR: Denies chest pain, palpitations, or edema. RESPIRATORY: Denies cough or dyspnea. GASTROINTESTINAL: Denies abdominal pain, nausea, vomiting, or diarrhea. GENITOURINARY: Denies dysuria or hematuria. SKIN: Denies rash or itching. MUSCULOSKELETAL: See HPI NEUROLOGIC: Denies headache, numbness, dizziness, or weakness. PSYCHIATRIC: Denies anxiety or depression. [facility] Past Medical History Medical History Diverticulitis IBS (irritable bowel syndrome) Surgical History Surgical History History of Family History Family History Other Breast cancer Grandparent Heart disease Hypertension Social History Social History Smoking status: Never smoker Alcohol intake: current Drinks per week: 3 Substance use: current Substance use type: marijuana Last use: 01/26 Gender identity (if verbalized by the patient): Female Spiritual care concerns: No Exam Narrative: GENERAL: Well-appearing, well-nourished, and in no acute distress. Patient resting comfortably in the exam chair. She is pleasant and conversational HEAD: Normocephalic, atraumatic. EYES: PERRLA and EOMI. ENT: Nares clear, no rhinorrhea or epistaxis. NECK: Supple. No adenopathy or masses. No midline cervical spine tenderness, step-offs or deformities. CHEST: Clear to auscultation. No respiratory distress. No wheezes rales or rhonchi HEART: Regular rate and rhythm. No murmur heard. Normal peripheral pulses. EXTREMITIES: RUE: Full active and passive ROM. No tenderness with palpation to glenohumeral joint, scapula, AC joint, humerus or remaining upper extremity. Radial pulse 2+. Sensation intact. Cap refill less than 2. Negative empty can, liftoff, external rotation. Sales Agent Protective Service strength 5/5. LUE: Tenderness to palpation over the left trapezius and proximal humerus. No tenderness over glenohumeral joint, scaphoid, or remaining upper extremity. Full passive ROM, limited active ROM with abduction and extension. Negative empty can and external rotation. Positive lift off. Sensation intact. Sales Agent Protective Service strength 5/5. Cap refill <2. SKIN: Warm, dry, no rash. NEURO: No focal deficits. Alert and oriented x3. PSYCH: Normal mood and affect. Course Vital Signs Vital signs: Vit
[2022-08-30] MEDS: HYDROcodone/acetaminophen (*CRX) 5-325 MG TABLET 1 TAB PO (12:00)
[2022-08-30 12:30] VITALS: BP 145/76; PULSE 89; RESP 18; O2SAT 99
== END 2022-08-30 12:32 | disposition home or self-care (01) ==
LOC: ANHED 12:29
PROVIDERS: Emergency Provider Physician Assistant; PCP Physician Assistant
DX: M25.512 Pain in left shoulder (principal); M25.511 Pain in right shoulder; K58.9 Irritable bowel syndrome, unspecified; R00.1 Bradycardia, unspecified
CPT/HCPCS: 73030; 93005; 96372; 99283; A4565; A9270; J1100

== ENCOUNTER 2022-11-20 13:30 | Outpatient (RCR) | payer OTHER, SELFPAY ==
--- NOTE | 2022-10-24 10:43 | PTOPEVAL1 ---
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 One day she felt a pop and her arm was just hanging by her side. She has seen her primary and an ortho doctor. Was given a sling to support her arm. She is reporting radiating pain along with pain in her shoulder up to her neck. She uses topical ointments and creams which she reports does not work. She has tried ice and after talking to the therapist will try heat. The patient has also had her significant other massage her shoulder and used a TENS unit with neither providing extended relief. Patient has trouble doing basically anything with the L shoulder. She is R handed. Reported Pain Level Pain Score Severe Pain: Sanders Reilly Additional Pain Score Comments Hard to get a number rating from the patient. Assessment PT Clinical Summary Lincoln is a 47 year old female coming into the clinic with a diagnosis of L shoulder pain. Patient has trouble with resisted external rotation, abduction, flexion along with decreased range of motion. Physical therapy will work on gentle range of motion along with scapular strengthening and isometric shoulder strengthening . Modalities and manual therapy as needed for pain control. Plan of Care Interventions Electrical Stimulation,Gait Training,Hot Pack/Cold Pack,Manual Therapy,Neuro Re-education,Patient/ Caregiver Education,Therapeutic Activities, Therapeutic Exercise,Ultrasound Other Interventions cupping, taping, IASTM PT Services Indicated Yes Treatment Frequency and 1-2x/wk for 4 weeks Duration These treatments will address the objective and functional deficits as defined above. The patient will be advanced safely and appropriately in order for the patient to progress towards his/her prior level of function. Additional exercises will be introduced and as well as a comprehensive home exercise program upon discharge, if needed, ?to ensure carryover of functional gains achieved in the clinic. This treatment plan has been reviewed and agreement upon by the patient.
--- NOTE | 2022-10-24 10:44 | OPREHPOC ---
Outpatient Therapy Plan of Care This is a Multidisciplinary Plan of Care that may contain components documented by all disciplines (PT, OT, and ST.) PT Problem 1 PT Problem #1 Knowledge Deficit PT Goal 1 Goal Independent with HEP Target Visit 6 PT Problem 2 PT Problem #2 Pain PT Goal 1 Goal decrease pain to allow for her to sleep through the night without waking her up. Target Visit 6 PT Problem 3 PT Problem #3 Impaired Range of Motion PT Goal 1 Goal L shoulder flexion and abduction to 120 degrees active range of motion Target Visit 6 PT Problem 4 PT Problem #4 Impaired Strength PT Goal 1 Goal Patient able to to manual muscle testing without pain Target Visit 6
--- NOTE | 2022-10-31 15:05 | PCPTNOTE ---
Patient did not show up for scheduled appointment this date. Called patient and she stated she thought it was tomorrow.
--- NOTE | 2022-11-05 15:00 | PCPTNOTE ---
Pt cancelled her appt. today due to car trouble and could not find a ride.
--- NOTE | 2022-11-07 13:17 | PCPTNOTE ---
Pt cancelled due to illness today.
--- NOTE | 2022-11-14 14:40 | PCPTNOTE ---
Patient called & cancelled scheduled appointment this date due to no sitter.
--- NOTE | 2022-11-20 14:14 | PTOPDC ---
Assessment and note entered by Salvatore Eason, PT Evaluation Information Assessment Status Discharge Diagnosis L shoulder pain Onset July 2022 Subjective Information Patient reports no improvement in her L shoulder pain since starting therapy. She reports she has had to stop going to work and is now needing her daughter to help her dress herself especially putting on her bra. Patient has been unable to get in touch with her primary or orthopedic consult. Reported Pain Level Additional Pain Score Comments with sleeping and trying to move it overhead easily gets it up to 10/10 pain. Assessment PT Clinical Summary Lincoln is a 47 year old female coming into the clinic for a diagnosis of L shoulder pain. She was evaluated on 10/23/22 and has attended 4 sessions. She has not met any evaluation and has decreased range of motion from initial evaluation. Looking through earlier orthopedic consult MRI was recommended and I believe that would be prudent course of action along with seeing orthopedic doctor for less conservative treatment options. Plan of Care PT Services Indicated No
== END 2022-11-21 09:32 | disposition home or self-care (01) ==
LOC: ANHPT 13:30
PROVIDERS: PCP Physician Assistant; Visit Provider Physician Assistant
DX: M25.512 Pain in left shoulder (principal)
CPT/HCPCS: 97014; 97110; 97140; 97161; 99199; G0283

== ENCOUNTER 2023-07-08 01:02 | Day surgery (SDC) | payer OTHER, SELFPAY ==
[2023-06-30 10:59] VITALS: BMI 33.5
--- NOTE | 2023-06-30 11:03 | PC.NURSE ---
Report to the Outpatient Waiting Room, entrance under the green pavilion located off [facility], at time 0600 on date 07/08/23. Planned Procedure Time: 0730. Time changes happen often and if your time is changed the preop area will call you the afternoon before. - You and your visitor will be asked to self-screen and do not enter if you have any COVID symptoms. - A mask is optional within the hospital at this time. Patients may have clear liquids (water, carbonated beverages, clear teas, apple juice) until 3 hours prior to surgery with a maximum of 20 ounces. - No food from midnight until time of surgery Take the following medications with a SIP of water the morning of surgery: AMLODIPINE DO NOT STOP ANY OF YOUR OTHER PRESCRIPTION MEDICATIONS PRIOR TO SURGERY ?EXCEPT THE FOLLOWING Medications to discontinue per physician: N/A Date to take last dose: N/A Please no make-up, nail nauruan, hairspray, perfume, deodorant, or body powder the day of surgery. No jewelry (including any body piercings) or valuables the day of surgery, leave them at home. Please take a shower or bath the night before, or the morning of, surgery with an antibacterial soap. Wear comfortable, loose fitting clothing. - Jewelry must be removed prior to entering the operating room. Rings and piercings that are not removed may be cut off. - The hospital will not accept responsibility for valuables. - Please leave all valuables, including medications, at home the day of surgery. If you are going home after surgery, a licensed road oiling truck driver must drive you home. - NO public transportation without another adult if you receive anesthesia. - We recommend that an adult stay with you for 24 hours following discharge. - We also recommend that you do not drive, make important decision, drink alcoholic beverages, or take any drugs that were not prescribed by your health care provider for at least 24 hours after your discharge time. Follow any additional instructions given to you from your surgeon. If you or anyone in your household have experienced Covid symptoms in the past week, please notify your surgeon or the nurse liaison at the phone number below for possible testing. Telephone instructions given to PT - SERG GARRETT and asked if any additional questions and then verbalized understanding. Patient advised to call surgeon office or pre surgery nurse liaison [phone] if any additional questions.
[2023-07-08] VITALS (7 sets, daily range): BP systolic 128–149; BP diastolic 65–92; PULSE 56–71; RESP 12–25; TEMP 36.1–36.4; O2SAT 97–100
[2023-07-08] MEDS: LACTATED RINGERS 1,000 ML 30 ML IV CONT (06:25)
[2023-07-08] MEDS: ACETAMINOPHEN 500 MG TABLET 1000 MG PO (06:32)
[2023-07-08] MEDS: KETOROLAC 15 MG/ML VIAL (*BKC) IV PUSH (06:34)
--- NOTE | 2023-07-08 07:20 | WPDANESEPPF ---
Anes - Initial Pre Proc Eval Procedure: Operation Date: 07/08/23 07:30 Proposed Procedures p Laparoscopic Bilateral Salpingectomy - Saqib Black MD Date/Time: 07/08/23 07:20 Surgeon: Saqib Black MD Pre Op Diagnosis: female sterilization Patient Data Age: 48 Gender: F Height: 1.52 m Weight: 74.8 kg Last Vital Signs Temp 36.4 C L 07/08/23 06:26 Pulse 67 07/08/23 06:26 Resp 16 07/08/23 06:26 BP 144/92 H 07/08/23 06:26 Pulse Ox 100 07/08/23 06:26 O2 Del Method Room Air 07/08/23 06:26 Allergies Allergy/AdvReac Type Severity Reaction Status Date / Time Penicillins AdvReac Mild Other Verified 07/08/23 06:06 Home Medications Medication Instructions Recorded Confirmed Type amlodipine 5 mg tablet 5 mg PO DAILY 06/30/23 06/30/23 History oxycodone-acetaminophen 5 mg-325 1 tablet PO Q4H PRN pain #10 tabs 07/08/23 Rx mg tablet progesterone micronized 200 mg 200 mg PO HS 30 days #30 caps 07/08/23 Rx capsule (Prometrium) Patient hx anesthesia problems: none Family hx anesthesia problems: none Results Review: All pre-operative results and documents have been reviewed as part of the pre-operative evaluation. [facility] Past Medical History Medical History Diverticulitis IBS (irritable bowel syndrome) Injury of left shoulder Surgical History Surgical History History of Family History Family History Other Breast cancer Grandparent Heart disease Hypertension Social History Social History Smoking status: Never smoker Alcohol intake: current Drinks per week: 3 Alcohol use details: RARE Substance use: current Substance use type: marijuana Last use: 01/26 Living arrangements: with family Gender identity (if verbalized by the patient): Female Spiritual care concerns: No Anes - Eval Final PreProcedure Day of Procedure 07/08/23 07:20 Patient weight: obese Heart: regular rate and rhythm Lungs: clear to auscultation Airway: Mallampati scale class III Neurological: alert and oriented Last oral intake: >/= 8 hours ASA classification: III Emergent: no Anesthetic plan: proceed Anesthesia type and monitoring: general ETT and standard monitoring Results Review: All pre-operative results and documents have been reviewed as part of the pre-operative evaluation. Informed Consent: The patient's anesthetic plan and its attendant risks and benefits were discussed with the patient/family/POA. Questions were solicited and answers provided to the satisfaction of the patient/family/POA.
--- NOTE | 2023-07-08 07:21 | WPDHPUPDATE1 ---
History and Physical Update Update Date/Time: 07/08/23 07:21 History and Physical has been reviewed, including an updated exam of the patient. There are NO changes in the patient's condition. Risks, benefits, and alternatives have been discussed and questions answered. Patient agrees to proceed with procedure.
--- NOTE | 2023-07-08 07:21 | PM.IMHP ---
H&P: HPI History of Present Illness Date/Time: 07/08/23 07:21 Chief Complaint: Female sterilization history of present illness: This patient is a 48-year-old female presents for female sterilization. We have agreed for laparoscopic bilateral salpingectomy. She understands the risks. She understands the procedure. Has been explained to her in detail. She understands injuries may occur that result in hospitalization, more surgery and severe illness. She understands risk of hemorrhage and infection. She denies any nausea, vomiting, fever, chills. She denies any chest pain shortness of breath. Review of Systems Review of Systems: All systems reviewed & are unremarkable except as noted in HPI and below Constitutional: Constitutional: Denies chills, Denies fatigue, Denies fever(s) and Denies weakness Eyes: Eyes: Denies blurry vision, Denies change in vision, Denies loss of peripheral vision, Denies loss of vision, Denies other visual disturbances and Denies eye pain ENT: Denies vertigo, Denies dizziness, Denies hearing loss, Denies mouth pain, Denies nasal obstruction, Denies neck mass and Denies neck pain Cardiovascular: Cardiovascular: Denies chest pain, Denies diaphoresis, Denies syncope, Denies leg edema and Denies dyspnea Respiratory: Respiratory: Denies chest congestion, Denies cough, Denies hemoptysis, Denies dyspnea and Denies wheezing Gastrointestinal: Gastrointestinal: Denies abdominal pain, Denies constipation, Denies diarrhea, Denies nausea and Denies vomiting Genitourinary: Genitourinary: Denies hematuria, Denies change in libido, Denies nocturia, Denies genital lesions, Denies flank pain and Denies urinary urgency Musculoskeletal: Musculoskeletal: Denies abnormal gait, Denies back pain, Denies myalgias, Denies arthralgias, Denies joint swelling, Denies muscle weakness and Denies neck pain Integumentary/Breasts: Skin/Breast: Denies swelling, Denies breast pain, Denies breast mass, Denies dry skin, Denies nipple discharge, Denies unusual bruising and Denies jaundice Neurologic: Denies Neuro-related abnormal movements, Denies Abnormal speech present, Denies abnormal gait, Denies behavioral changes, Denies confusion, Denies vertigo, Denies dizziness, Denies syncope, Denies loss of vision, Denies memory loss, Denies convulsions and Denies weakness Psychiatric: Psychiatric: Denies abnormal sleep pattern, Denies behavioral changes, Denies change in libido, Denies confusion, Denies depression, Denies anhedonia and Denies memory loss Endocrine: Endocrine: Reports no additional endocrine complaints, Denies change in libido and Denies fatigue Hematologic/Lymphatic: Hematologic/Lymphatic: Reports no additional hematologic/lymphatic complaints Allergic/Immunologic: Allergic/Immunologic: Reports no additional allergic/immunologic complaints and Denies wheezing PMFSH Past Medical History Medical History Diverticulitis IBS (irritable bowel syndrome) Injury of left shoulder Surgical History Surgical History History of Family History Family History Other Breast cancer Grandparent Heart disease Hypertension Social History Social History Smoking status: Never smoker Alcohol intake: current Drinks per week: 3 Alcohol use details: RARE Substance use: current Substance use type: marijuana Last use: 01/26 Living arrangements: with family Gender identity (if verbalized by the patient): Female Spiritual care concerns: No Meds Home Medications and Allergies Home Medications Medication Instructions Recorded Confirmed Type amlodipine 5 mg tablet 5 mg PO DAILY 06/30/23 06/30/23 History oxycodone-acetaminophen 5 mg-325 1 tablet PO Q4H PRN pain #
--- NOTE | 2023-07-08 08:27 | W.PM.PROC2 ---
Procedure Note - Detailed Date of Procedure 07/08/23 Pre-op Diagnosis female sterilization Post-op Diagnosis Same Procedure Performed Laparoscopic bilateral salpingectomy Surgeon Saqib Black MD Anesthesia General Indications Unwanted fertility Findings Normal pelvic anatomy Description of Procedure The patient was taken the operating room. She was prepped and draped in the dorsal lithotomy position after induction of general anesthesia. A 5 mm skin incision was made in the left upper quadrant of the abdominal skin. A 5 mm trocar was inserted the intra-abdominal cavity under direct visualization of the scope. Pneumoperitoneum was achieved. A 5 mm trocar was inserted in the left lower quadrant identical fashion. A 5 mm infraumbilical trocar was inserted in identical fashion as well. The bilateral fallopian tubes were removed. This was done by using a LigaSure cautery. The mesosalpinx adjacent to the tube was cauterized transected with LigaSure. This was initiated in the area the ovary and in a stepwise fashion moved medially to the area of the cornu of the uterus. Once there the fallopian tube was cauterized and transected. This was done in identical fashion on each side. The fallopian tubes were taken out through the left lower quadrant trocar site. The pneumoperitoneum was reduced. The trocars removed. The skin was closed with subcuticular 4 Monocryl and covered with Dermabond. She was taken to cover stable condition. Sponge lap and needle counts were correct x2. Estimated Blood Loss 5 Drains No Packing No Pathology Yes Complications No immediate complications Condition Stable Disposition PACU
[2023-07-08] MEDS: ONDANSETRON INJ 4 MG/2 ML VIAL IV PUSH (08:49)
== END 2023-07-08 10:10 | disposition home or self-care (01) ==
PROVIDERS: PCP Physician Assistant; Visit Provider Obstetrics & Gynecology
PROC: (CPT 49320; principal; 2023-07-08 07:30)
DX: Z30.2 Encounter for sterilization (principal); E66.9 Obesity, unspecified; Z68.32 Body mass index [BMI] 32.0-32.9, adult
CPT/HCPCS: 58661; 88302; A9270; J0330; J1100; J1885; J2250; J2405; J2704; J3010; J7030; J7120

== ENCOUNTER 2024-04-03 14:11 | Emergency (ER) | payer OTHER, SELFPAY ==
[2024-04-03 14:23] VITALS: BP 143/76; PULSE 65; RESP 16; TEMP 36.8; O2SAT 98
--- NOTE | 2024-04-03 15:02 | ED_ITS ---
HPI - Back Pain/Injury General Chief Complaint: Back Pain/Injury Stated Complaint: right side back pain Time Seen by Provider: 04/03/24 15:02 Source: patient, RN notes reviewed and old records reviewed Mode of arrival: ambulatory Limitations: no limitations History of Present Illness HPI Narrative: Patient presents with complaints of longstanding right-sided low back pain that radiates down right buttock and right thigh. She reports that she has discuss this with her primary care provider and has an order for an x-ray, but has not had this done yet. She also has some Flexeril. She reports this is not helping with the pain, but is making her tired and she which is not to take it. She states that now that she is not taking Flexeril pain has increased. She denies any recent injury or trauma. She denies any loss of bowel or bladder control. She denies any numbness or tingling. She voices no other concerns or complaints at this time. She is observed ambulating with a steady gait, no limp Related Data Home Medications Medication Instructions Recorded Confirmed amlodipine 5 mg tablet 5 mg PO DAILY 06/30/23 04/03/24 cyclobenzaprine 10 mg tablet See Rx Instructions .Route .COMPLEX 04/03/24 04/03/24 estradiol 0.01% (0.1 mg/gram) See Rx Instructions .Route .COMPLEX 04/03/24 04/03/24 vaginal cream norethindrone (contraceptive) 0.35 0.35 mg PO DAILY 04/03/24 04/03/24 mg tablet Allergies Allergy/AdvReac Type Severity Reaction Status Date / Time Penicillins AdvReac Mild Other Verified 04/03/24 14:12 Review of Systems Review of Systems: All systems reviewed & are unremarkable except as noted in HPI and below Constitutional: Constitutional: Reports no additional constitutional complaints ENT: Reports system reviewed and no additional complaints, except as documented Cardiovascular: Cardiovascular: Reports no additional cardiovascular complaints Respiratory: Respiratory: Reports no additional respiratory complaints Gastrointestinal: Gastrointestinal: Reports no additional gastrointestinal complaints Musculoskeletal: Musculoskeletal: Reports no additional musculoskeletal complaints and Reports as per HPI [facility] Past Medical History Medical History Diverticulitis IBS (irritable bowel syndrome) Injury of left shoulder Surgical History Surgical History History of Family History Family History Other Breast cancer Grandparent Heart disease Hypertension Social History Social History Smoking status: Never smoker Alcohol intake: current Drinks per week: 3 Alcohol use details: RARE Substance use: current Substance use type: marijuana Last use: 01/26 Living arrangements: with family Gender identity (if verbalized by the patient): Female Spiritual care concerns: No Comments At the time of my signature, I reviewed and agree with the nursing past medical, surgical, social, and family history. There is no relevant family history pertinent to the patient complaint. Exam Const: General: cooperative, no acute distress, alert and awake Orientation/consciousness: oriented to person, oriented to place and oriented to time HENMT: Head: normal to inspection Resp: Effort & Inspection: normal respiratory effort and able to speak in complete sentences Auscultation: clear to auscultation bilaterally, no crackles, no rales, no rhonchi and no wheezes Cardio: Palpation: normal PMI Rate: regular rate Rhythm: regular rhythm Heart sounds: S1 normal heart sound present and S2 normal heart sound present Back/Spine/Pelvis: Back: back tenderness (right lumbar) Sacroiliac joints: on the right tender to palpation Neuro: General: oriented to person, oriented to place and oriented to time Cranial nerves: Yes CN's II-XII intact bilaterally Psych: Appearance: grossly normal Thought process: Normal thought process present Insight: Good insight present (Psych) Judgement: Good judgement present (Psych) Course Course Level of Care: Express Care Visit Vital Signs Vital signs: Vital Signs Temperature 98.2 F 04/03/24 14:23 Pulse Rate 65 04/03/24 14:23 Respiratory Rate 16 04/03/24 14:23 Blood Pressure 143/76 H 04/03/24 14:23 Pulse Oximetry 98 04/03/24 14:23 Oxygen Delivery Room Air 04/03/24 14:23 Temperature 98.2 F 04/03/24 14:23 Pulse Rate 65 04/03/24 14:23 Respiratory Rate 16 04/03/24 14:23 Blood Pressure 143/76 H 04/03/24 14:23 Pulse Oximetry 98 04/03/24 14:23 Oxygen Delivery Room Air 04/03/24 14:23 Reviewed MDM - Back Pain/Injury MDM Narrative Medical decision making narrative: History and exam consistent with sciatica. Start prednisone burst. Patient advised to discuss with primary care provider. Get x-rays done as directed by primary care provider. Discharge instructions reviewed with patient, as well as provided in writing per nursing staff. The instructions also include specific and strict return/GO TO THE ER as well as f/u information. All questions have been answered, and the patient deny any further questions with discharge and discharge plan. Some parts of this dictation were generated by voice recognition software and may contain typographical and/or grammatical inaccuracies. Differential Diagnosis Differential diagnosis: Likely lumbar radiculopathy and sciatica Medical Records Attestation: I reviewed the patient's medical records. Discharge Plan Discharge Clinical Impression: Sciatica Qualifiers: Laterality: right Qualified Code(s): M54.31 - Sciatica, right side Patient Disposition: Home, Self-Care Condition: Stable Instructions: Antibiotic Form, Sciatica (ED) Additional Instructions: Follow-up with primary care provider. Emergency department for new or worse symptoms. Take medications as prescribed Patient Language: Occitan Prescriptions: New prednisone 50 mg tablet 50 mg PO DAILY Qty: 5 0RF No Action estradiol 0.01 % (0.1 mg/gram) cream See Rx Instructions .ROUTE .COMPLEX Rx Instructions: Rx norethindrone (contraceptive) 0.35 mg tablet 0.35 mg PO DAILY cyclobenzaprine 10 mg tablet See Rx Instructions .ROUTE .COMPLEX Rx Instructions: rx amlodipine 5 mg tablet 5 mg PO DAILY Follow-up/Referrals: Moose,JOHNNY Taylor [Primary Care Provider] - 1 Week Time of Disposition: 15:10
== END 2024-04-03 15:14 | disposition home or self-care (01) ==
PROVIDERS: Emergency Provider Nurse Practitioner Family; PCP Physician Assistant
DX: M54.31 Sciatica, right side (principal); F12.90 Cannabis use, unspecified, uncomplicated
CPT/HCPCS: 99213; G0463

== ENCOUNTER 2024-04-06 15:07 | Outpatient (CLI) | payer OTHER, SELFPAY ==
--- NOTE | ~2024-04-06 | XR_ITS ---
EXAMINATION: XR lumbar spine 2-3V DATE: 04/06/2024 15:26 INDICATION: Low back pain. TECHNIQUE: 3 views of lumbar spine were obtained. COMPARISON: CT abdomen and pelvis 01/28/2022 FINDINGS: Alignment is normal. Vertebral body heights are normal. There is mildly decreased disc heig ht at L2-L3 and L3-L4. There is multilevel facet joint osteoarthritis, severe in lower lumbar spine. IMPRESSION: 1. Mild lumbar spondylosis. Reviewed, dictated and finalized at location A. R TESTER IMPRESSION: 1. Mild lumbar spondylosis.
== END 2024-04-06 15:08 | disposition home or self-care (01) ==
PROVIDERS: PCP Physician Assistant; Visit Provider Physician Assistant
DX: M47.896 Other spondylosis, lumbar region (principal)
CPT/HCPCS: 72100

== ENCOUNTER 2025-01-21 12:06 | Emergency (ER) | payer SELFPAY ==
--- NOTE | 2025-01-21 12:12 | ED.UPPEXIN ---
HPI - Extremity Injury (Upper) General Chief Complaint: Extremity Injury, Upper Stated Complaint: right wrist swollen Time Seen by Provider: 01/21/25 12:28 Source: patient and RN notes reviewed Mode of arrival: ambulatory Limitations: no limitations History of Present Illness HPI narrative: 49-year-old female presents concern for right wrist pain that radiates to the 1st digit and down the arm. She reports she used a compression sleeve and has used ice. She reports symptoms have been there for 1 month. 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 She reports it is slightly swollen. She denies any injury or trauma. 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 MD complaint: injury to: right and wrist Related Data Home Medications ?Medication ?Instructions ?Recorded ?Confirmed ?Last Taken ?Type estradiol 0.01% (0.1 mg/gram) See Rx Instructions .Route .COMPLEX 04/03/24 04/03/24 Unknown History vaginal cream norethindrone (contraceptive) 0.35 0.35 mg PO DAILY 04/03/24 04/03/24 Unknown History mg tablet amlodipine 10 mg tablet mg 01/21/25 Unknown History valacyclovir 500 mg tablet mg 01/21/25 Unknown History Allergies Allergy/AdvReac Type Severity Reaction Status Date / Time Penicillins AdvReac Mild Other Verified 04/03/24 14:12 Review of Systems Review of Systems: CONSTITUTIONAL: Denies malaise, chills, sweats, or fever. SKIN: Denies rash or itching, open skin, laceration, abrasion, redness, warmth MUSCULOSKELETAL: Reports right hand pain and swelling NEUROLOGIC: Denies numbness, weakness All systems reviewed & are unremarkable except as noted in HPI and below PMFSH Past Medical History Medical History Diverticulitis IBS (irritable bowel syndrome) Injury of left shoulder Surgical History Surgical History History of Family History Family History Other Breast cancer Grandparent Heart disease Hypertension Social History Social History Smoking status: Never smoker Alcohol intake: current Drinks per week: 3 Alcohol use details: RARE Substance use: current Substance use type: marijuana Last use: 01/26 Living arrangements: with family Gender identity (if verbalized by the patient): Female Spiritual care concerns: No Comments At time of signature, agree with nursing past medical, surgical, social and family history. There is no relevant family history pertinent to the presenting complaint Exam Narrative: GENERAL: Well-appearing, well-nourished, and in no acute distress. HEAD: Normocephalic, atraumatic. EYES: PERRLA, conjunctivae clear NECK: Supple. CHEST: Speaks in full sentences. No respiratory distress. HEART: Regular rate and rhythm. Normal and equal peripheral pulses. EXTREMITIES: Right hand digits have grossly normal strength and sensation, grossly normal range of motion. Mild edema below the 4th digit without erythema, warmth or ecchymosis. 5/5 strength with digit flexion and extension. Normal sensation with sensitivity to light touch and pain. General wrist tenderness. No open wounds, no skin tenting, no devitalized tissue or atrophy, no trophic changes, no obvious deformity, alignment normal, nearby joints and structures intact. Distal pulses palpable and equal bilaterally, skin warm, dry, pink. Capillary refill less than 3 seconds. SKIN: Warm, dry, no rash. NEURO: Alert and oriented x3. PSYCH: Normal mood and affect Course Course Emergency Course: Patient is aware of diagnosis, understands and agrees to treatment plan. Anticipatory guidance given. Patient agrees to follow-up as directed and is aware of reasons to seek care at the emergency department. Portions of this record may have been created with voice recognition software Level of Care: Express Care Visit Vital Signs Vital signs: Reviewed. Critical Care Time Critical Care Time Critical Care Time: No Discharge Plan Discharge Clinical Impression: Tendonitis Patient Disposition: Home Condition: Stable Instructions: Tendinitis (ED) Additional Instructions: Avoid activities that cause pain until the pain subsides. Ice to the area 20-30 minutes 4-6 times a day Elevate above heart Elastic wrap or orthopedic splint as directed for comfort for the next 5-7 days Tylenol lesser pain Anti-inflammatory as directed Follow up with your primary care provider if the condition is not improving within 1 week. If the condition worsens with numbness, tingling, decrease sensation with weakness seek treatment in the emergency room immediately. Patient Language: Indian Prescriptions: New prednisone 20 mg tablet 40 mg PO DAILY 5 Days Qty: 10 0RF No Action estradiol 0.01 % (0.1 mg/gram) cream See Rx Instructions .ROUTE .COMPLEX Patient Comments: not currently taking Rx Instructions: Rx norethindrone (contraceptive) 0.35 mg tablet 0.35 mg PO DAILY valacyclovir 500 mg tablet amlodipine 10 mg tablet Patient Comments: pt supposed to be taking but is out of med Follow-up/Referrals: PHYSICIAN,CLIENT CARE REPRESENTATIVE [Primary Care Provider, Internal Medicine] Time of Disposition: 12:36
[2025-01-21 12:14] VITALS: BP 130/77; PULSE 78; RESP 20; TEMP 36.8; O2SAT 95
== END 2025-01-21 12:45 | disposition home or self-care (01) ==
PROVIDERS: Emergency Provider Nurse Practitioner
DX: M67.833 Other specified disorders of tendon, right wrist (principal)
CPT/HCPCS: 99213; G0463

== ENCOUNTER 2025-01-26 11:48 | Emergency (ER) | payer SELFPAY ==
--- NOTE | ~2025-01-26 | XR_ITS ---
EXAMINATION: XR wrist RT min 3V DATE: 01/26/2025 12:50 INDICATION: Wrist pain. No injury TECHNIQUE:4 images of the right wrist were obtained. COMPARISON: none FINDINGS: Mild joint space narrowing in the first carpometacarpal joint. Soft tissue swelling about the right wrist. No fracture. Bone mineralization is within normal limits. No sclerotic or destructive bone lesion. Mild joint space narrowing in the first metacarpophalangeal joint. IMPRESSION: 1. No fracture. 2. Mild joint space narrowing in the first carpal metacarpal joint. If symptoms persist or worsen, consider a short-term follow-up study or additional imaging for further assessment. Reviewed, dictated and finalized at location Q. IMPRESSION: 1. No fracture. 2. Mild joint space narrowing in the first carpal metacarpal joint. If symptoms persist or worsen, consider a short-term follow-up study or additio nal imaging for further assessment.
[2025-01-26 12:23] VITALS: BP 122/87; PULSE 68; RESP 16; TEMP 36.6; O2SAT 100
--- NOTE | 2025-01-26 12:28 | ED.EXTPRO ---
HPI - Extremity Problem General Chief complaint: Extremity Problem,Nontraumatic Stated complaint: right wrist pain Time Seen by Provider: 01/26/25 14:56 Focused HPI: GENERAL: Well-appearing, well-nourished, and in no acute distress. HEAD: Normocephalic, atraumatic. CHEST: Respiratory rate normal, respiratory effort nonlabored, no respiratory distress HEART: Regular rate and rhythm.? NEURO: ?Alert and oriented x3. MSK: Right wrist: No obvious deformity, bruising, redness, or injury. Mild swelling to the right wrist. Is tender to palpate to the radial side of the wrist. Negative tinel signs and phalen signs. Positive gumaro test. No snuffbox tenderness. There is pain through full range of motion of wrist. Patient make a fist, stop sign, okay sign, thumbs-up sign. Right radial pulse 2 +and palpable. Capillary refill less than 2 seconds. Neurovascular status intact distally. Patient wiggle her fingers. Radial ulnar nerve distribution intact. Patient screened in triage and initial orders placed.? ?Additional care and disposition to be based upon?diagnostic testing and treatment. Source: patient and RN notes reviewed Mode of arrival: ambulatory Limitations: no limitations History of Present Illness HPI Narrative: Agree with HPI. Related Data Home Medications ?Medication ?Instructions ?Recorded ?Confirmed ?Last Taken ?Type estradiol 0.01% (0.1 mg/gram) See Rx Instructions .Route .COMPLEX 04/03/24 04/03/24 Unknown History vaginal cream norethindrone (contraceptive) 0.35 0.35 mg PO DAILY 04/03/24 04/03/24 Unknown History mg tablet amlodipine 10 mg tablet mg 01/21/25 Unknown History valacyclovir 500 mg tablet mg 01/21/25 Unknown History Allergies Allergy/AdvReac Type Severity Reaction Status Date / Time Penicillins AdvReac Mild Other Verified 04/03/24 14:12 Review of Systems Review of Systems: CONSTITUTIONAL: Denies fever, chills, or sweats. EYES: Denies visual changes, redness, or discharge. ENT: Denies rhinorrhea, congestion, sore throat, or otalgia. CARDIOVASCULAR: Denies chest pain, palpitations, or edema. RESPIRATORY: Denies cough or dyspnea. GASTROINTESTINAL: Denies abdominal pain, nausea, vomiting, or diarrhea. GENITOURINARY: Denies dysuria or hematuria. SKIN: Denies rash, wound, or itching. MUSCULOSKELETAL: Denies back pain, joint pain, or myalgia. Positive for right wrist pain and swelling NEUROLOGIC: Denies headache, numbness, or weakness. PSYCHIATRIC: Denies anxiety or depression. All other systems reviewed are negative, except as documented in HPI. [facility] Past Medical History Medical History Injury of left shoulder IBS (irritable bowel syndrome) Diverticulitis Surgical History Surgical History History of Family History Family History Other Breast cancer Grandparent Heart disease Hypertension Social History Social History Smoking status: Never smoker Alcohol intake: current Drinks per week: 3 Alcohol use details: RARE Substance use: current Substance use type: marijuana Last use: 01/26 Living arrangements: with family Gender identity (if verbalized by the patient): Female Spiritual care concerns: No Comments At the time of my signature, I reviewed and agree with the nursing past medical, surgical, social, and family history. There is no relevant family history pertinent to the patient complaint. Exam Narrative: GENERAL: This is a well-nourished, well-developed adult, in no apparent distress. They are non ill-appearing, nontoxic appearing. HEAD: normocephalic, atraumatic. EYES: Sclera clear/white. Vision is grossly intact. Conjunctiva normal. Extraocular movement intact. EARS: External ears normal Hearing grossly intact. NOSE: External nose normal THROAT: Mucous membranes moist NECK: Neck supple CARDIOVASCULAR: Regular rate and rhythm RESPIRATORY: Respiratory rate normal, respiratory effort nonlabored, no respiratory distress NEURO: awake, alert, and oriented to person, place and time. There were no obvious focal neurologic abnormalities. EXTREMITIES: Right wrist: No obvious deformity, bruising, redness, or injury. Mild swelling to the right wrist. Is tender to palpate to the radial side of the wrist. Negative tinel signs and phalen signs. Positive gumaro test. No snuffbox tenderness. There is pain through full range of motion of wrist. Patient make a stop sign, okay sign, thumbs-up sign. Right radial pulse 2 +and palpable. Capillary refill less than 2 seconds. Neurovascular status intact distally. Patient wiggle her fingers. Radial ulnar nerve distribution intact. BACK: Nontender without deformity. Course Course Emergency Course: Portions of this record may have been created with voice recognition software Vital Signs Vital signs: Vital Signs Temperature 97.9 F 01/26/25 12:23 Pulse Rate 68 01/26/25 12:23 Respiratory Rate 16 01/26/25 12:23 Blood Pressure 122/87 01/26/25 12:23 Pulse Oximetry 100 01/26/25 12:23 Oxygen Delivery Room Air 01/26/25 12:23 Temperature 97.9 F 01/26/25 12:23 Pulse Rate 68 01/26/25 12:23 Respiratory Rate 16 01/26/25 12:23 Blood Pressure 122/87 01/26/25 12:23 Pulse Oximetry 100 01/26/25 12:23 Oxygen Delivery Room Air 01/26/25 12:23 Reviewed MDM - Extremity (Nontraumatic) MDM Narrative Medical decision making narrative: X-ray right wrist reveals no evidence of fractures or acute findings. There is some joint space narrowing noted which could be arthritis. Patient given Amandeep wrap recommend recommend referral to orthopedist. Cannot exclude de quervain's disease given postive gumaro test. Patient given a dose of Tylenol and ibuprofen with some improvement in pain. Discussed physical exam findings. Advised supportive measures and signs/symptoms to go to the ER. Pt is appropriate for outpt treatment and f/u. Differential Diagnosis Differential diagnosis: Likely other (de quervain's disease, arthritis, wrist sprain, wrist fracture, contusion, carpal tunnel syndrome.) Imaging Data Radiologist's impression: ITS Impressions Wrist X-Ray 01/26/25 12:51 IMPRESSION: 1. No fracture. 2. Mild joint space narrowing in the first carpal metacarpal joint. If symptoms persist or worsen, consider a short-term follow-up study or additional imaging for further assessment. Critical Care Time Critical Care Time Critical Care Time: No Discharge Plan Discharge Clinical Impression: Acute pain of right wrist Patient Disposition: Home Condition: Stable Instructions: Arthritis (ED) Additional Instructions: The x-ray of your right wrist is negative for any fractures or acute findings. The x-ray does show some arthritis in your right wrist. Rest and elevate the right wrist, uses tolerated. Apply ice 15-20 minute intervals several times a day Keep it wrapped with AMANDEEP or use a wrist cock-up splint. You may take ibuprofen 600 mg to 800 mg every 6-8 hours. Do not exceed more than 800 mg of ibuprofen per dose. Do not exceed more than 3200 mg ibuprofen in a day. You may take up to 1000 mg Tylenol every 6-8 hours. Do not exceed 1000 mg per dose, do exceed more than 4000 mg of Tylenol in a day. If you take Naprosyn do not take ibuprofen or any other NSAIDs. Follow up with your primary care provider orthopedist and 1-2 weeks. Patient Language: Nepali Prescriptions: No Action estradiol 0.01 % (0.1 mg/gram) cream See Rx Instructions .ROUTE .COMPLEX Patient Comments: not currently taking Rx Instructions: Rx norethindrone (contraceptive) 0.35 mg tablet 0.35 mg PO DAILY valacyclovir 500 mg tablet amlodipine 10 mg tablet Patient Comments: pt supposed to be taking but is out of med prednisone 20 mg tablet 40 mg PO DAILY 5 Days Qty: 10 0RF Follow-up/Referrals: PHYSICIAN,MOBILITY SPECIALIST [Primary Care Provider, Internal Medicine] Mamadou Serrano MD [Physician, Orthopedics] Stand Alone Forms: Work/School Release IP Time of Disposition: 15:09
[2025-01-26] MEDS: IBUPROFEN 400 MG TABLET 800 MG PO (14:01)
== END 2025-01-26 15:41 | disposition home or self-care (01) ==
DX: M25.531 Pain in right wrist (principal); K58.9 Irritable bowel syndrome, unspecified; Z79.3 Long term (current) use of hormonal contraceptives
CPT/HCPCS: 73110; 99283; A9270

== ENCOUNTER 2025-03-07 21:25 | Emergency (ER) | payer SELFPAY ==
[2025-03-07 21:33] VITALS: BP 149/92; PULSE 70; RESP 20; TEMP 36.9; O2SAT 99
[2025-03-07 22:55] LABS: Add Urine Microscopic? YES; Appearance Urine Cloudy (Clear); Glucose Urine UA Negative (Negative); Leukocyte Esterase Ur 3+ LEU/UL (Negative); Nitrate Urine Negative (Negative); Non Pathogenic Casts 0-2; Specific Grav Ur 1.023 (1.001-1.035)
--- NOTE | 2025-03-07 23:32 | ED_ITS ---
HPI - Female Genitourinary General Chief complaint: [employer] Stated complaint: 'female issues' Time Seen by Provider: 03/07/25 22:31 Source: patient Mode of arrival: ambulatory Limitations: no limitations History of Present Illness HPI Narrative: This is a 49 year old female that presents to the ER for dysuria. Reports burning with urination, abnormal discharge. Ongoing since earlier today. Denies fever, hematuria, vomiting. Related Data Home Medications ?Medication ?Instructions ?Recorded ?Confirmed ?Last Taken ?Type estradiol 0.01% (0.1 mg/gram) See Rx Instructions .Rou te .COMPLEX 04/03/24 04/03/24 Unknown History vaginal cream norethindrone (contraceptive) 0.35 0.35 mg PO DAILY 04/03/24 Unknown History mg tablet amlodipine 10 mg tablet mg 01/21/25 Unknown History valacyclovir 500 mg tablet mg 01/21/25 Unknown Histor y Allergies Allergy/AdvReac Type Severity Reaction Status Date / Time Penicillins AdvReac Mild Other Verified 03/07/25 21:26 Review of Systems Review of Systems: All systems reviewed & are unremarkable except as noted in HPI and below PMFSH Past Medical History Medical History Injury of left shoulder IBS (irritable bowel syndrome) Diverticulitis Surgical History Surgical History History of Family History Family History Other Breast cancer Grandparent Heart disease Hypertension Social History Social History Smoking status: Never smoker Alcohol intake: current Drinks per week: 3 Alcohol use details: RARE Substance use: current Substance use type: marijuana Last use: 01/26 Living arrangements: with family Gender identity (if verbalized by the patient): Female Spiritual care concerns: No Exam Narrative: GENERAL: Well-appearing, well-nourished, and in no acute distress. HEAD: Normocephalic, atraumatic. EYES: EOMI. CHEST: No respiratory distress. HEART: Regular rate EXTREMITIES: Normal range of motion. No edema. SKIN: Warm, dry, no rash. NEURO: No focal deficits. Alert and oriented x3. PSYCH: Normal mood and affect PELVIC: Moderate green discharge in the vaginal vault, no CMT Course Vital Signs Vital signs: Vital Signs Temperature 98.4 F 03/07/25 21:33 Pulse Rate 70 03/07/25 21:33 Respiratory Rate 20 03/07/25 21:33 Blood Pressure 149/92 H 03/07/25 21:33 Pulse Oximetry 99 03/07/25 21:33 Oxygen Delivery Room Air 03/07/25 21:33 Temperature 98.4 F 03/07/25 21:33 Pulse Rate 70 03/07/25 21:33 Respiratory Rate 20 03/07/25 21:33 Blood Pressure 149/92 H 03/07/25 21:33 Pulse Oximetry 99 03/07/25 21:33 Oxygen Delivery Room Air 03/07/25 21:33 MDM - Female Genitourinary MDM Narrative Medical decision making narrative: Patient presents to the emergency department for dysuria. She is afebrile and nontoxic appearing. UA with greater than 100 white blood cells. Chlamydia, gonorrhea and Trichomonas are negative. Patient will be started on oral antibiotics for UTI. Also given prescription for metronidazole for BV. Genital culture and BV panel sent. 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 She was given warnings to return to the ER Differential Diagnosis Differential diagnosis: Likely urinary tract infection, bacterial vaginosis and vaginitis Lab Data Attestation: I reviewed the patient's lab results. Labs: Lab Results 03/07/25 03/07/25 Range/Units 22:39 23:17 Urine Color Yellow (Yellow) Urine Appearance Cloudy H (Clear) Urine pH 6.0 (5.0-9.0) Ur Specific [place] 1.023 (1.001-1.035) Urine Protein Trace (Negative) mg/dL Urine Glucose (UA) Negative (Negative) mg/dL Urine Ketones Trace H (Negative) mg/dL Ur Blood (Man) Negative (Negative) Urine Nitrate Negative (Negative) Urine Bilirubin Negative (Negative) Urine Urobilinogen 1.0 (<2.0) mg/dL Leukocyte Esterase Rfl 3+ H (Negative) MACKENZIE/UL Urine RBC 0-2 (0-2) /hpf Urine WBC >100 H (0-3) /hpf Ur Squamous Epith Cells None seen (Few) /hpf Urine Bacteria Trace /hpf Urine Casts 0-2 C. trachomatis (PCR) Not detected (NOT DETECTE) N. gonorrhoeae (PCR) Not detected (NOT DETECTE) T. vaginalis (PCR) Not detected (NOT DETECTE) Bact Vaginosis Panel Cancelled Critical Care Time Critical Care Time Critical Care Time: No Discharge Plan Discharge Clinical Impression: Acute UTI, Bacterial vaginosis Patient Disposition: Home Condition: Stable Instructions: Antibiotic Form, Bacterial Vaginosis (ED), Urinary Tract Infection in Women (ED) Additional Instructions: Return to the ER if you experience fever, abdominal pain with nausea and vomiting, you are unable to keep down liquids or solids, or any other symptoms that are concerning to you Remain well hydrated. 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 with your supervisor metal furniture assembly Patient Language: Portuguese Prescriptions: New cefdinir 300 mg capsule 300 mg PO Q12H 5 Days Qty: 10 0RF metronidazole 500 mg tablet 500 mg PO Q12H 7 Days Qty: 14 0RF No Action estradiol 0.01 % (0.1 mg/gram) cream See Rx Instructions .ROUTE .COMPLEX Patient Comments: not currently taking Rx Instructions: Rx norethindrone (contraceptive) 0.35 mg tablet 0.35 mg PO DAILY valacyclovir 500 mg tablet amlodipine 10 mg tablet Patient Comments: pt supposed to be taking but is out of med prednisone 20 mg tablet 40 mg PO DAILY 5 Days Qty: 10 0RF Follow-up/Referrals: Danii Cope DO [Primary Care Provider, [facility]]
[2025-03-07] MEDS: PHENAZOPYRIDINE HCL 100 MG TABLET 200 MG PO (23:50)
[2025-03-07] MEDS: IBUPROFEN 600 MG TABLET PO (23:50)
[2025-03-07 23:56] LABS: Trichomonas Vag PCR NOT DETECTED (NOT DETECTE)
[2025-03-08] MEDS: FLUCONAZOLE 150 MG TABLET PO (00:38)
[2025-03-08] MEDS: CEFDINIR 300 MG CAPSULE PO (00:38)
[2025-03-08 00:46] VITALS: BP 150/90; PULSE 70; RESP 18; TEMP 37; O2SAT 100
== END 2025-03-08 00:46 | disposition home or self-care (01) ==
PROVIDERS: Emergency Provider Physician Assistant; PCP Family Medicine
DX: N39.0 Urinary tract infection, site not specified (principal); N76.0 Acute vaginitis; Z11.8 Encounter for screening for other infectious and parasitic diseases; Z11.3 Encounter for screening for infections with a predominantly sexual mode of transmission
CPT/HCPCS: 81001; 87070; 87086; 87186; 87491; 87591; 87661; 87798; 99284; A9270